=== PATIENT | female | born 1965 | race American Indian/Alaskan Native ===

== ENCOUNTER 2016-12-13 09:03 | Emergency (ER) | payer MEDICARE, OTHER ==
[2016-12-13 09:09] VITALS: BMI 29.2
[2016-12-13 09:10] VITALS: TEMP 98.6
--- NOTE | 2016-12-13 09:52 | C.PDOC ---
History Of Present Illness 51 y/o female presents to the ED with complaints of left lower back pain since 1700 yesterday, at first intermittent but then became constant and worse this morning. Pain radiates to LLQ. Pt states back pain IS different from prior episodes of back pain. She denies history of kidney stones, nausea, vomiting, diarrhea, dysuria/hematuria, vaginal bleeding/discharge. Time Seen by Provider: 12/13/16 09:23 Chief Complaint (Nursing): Back Pain History Per: Patient History/Exam Limitations: no limitations Onset/Duration Of Symptoms: Hrs Current Symptoms Are (Timing): Worse Quality Of Discomfort: "Pain" Severity: Moderate Previous Symptoms: None Associated Symptoms: None Past Medical History Reviewed: Historical Data, Nursing Documentation, Vital Signs Vital Signs: Last Vital Signs Temp 98.6 F 12/13/16 09:08 Pulse 66 12/13/16 12:37 Resp 17 12/13/16 12:37 BP 118/82 12/13/16 12:37 Pulse Ox 98 12/13/16 12:37 - Medical History PMH: Bronchitis, CAD, CHF, COPD, HTN, Hyperlipidemia Surgical History: Cholecystectomy, Pacemaker Family History: States: No Known Family Hx - Social History Hx Tobacco Use: No Hx Alcohol Use: No Hx Substance Use: No - Immunization History Hx Tetanus Toxoid Vaccination: No Hx Influenza Vaccination: Yes Hx Pneumococcal Vaccination: No Review Of Systems Except As Marked, All Systems Reviewed And Found Negative. Constitutional: Negative for: Fever, Chills Cardiovascular: Negative for: Chest Pain, Palpitations Respiratory: Negative for: Cough, Shortness of Breath Gastrointestinal: Negative for: Nausea, Vomiting, Abdominal Pain, Diarrhea Genitourinary: Negative for: Dysuria, Hematuria, Vaginal Discharge, Vaginal Bleeding Musculoskeletal: Positive for: Back Pain (radiating to LLQ) Physical Exam - Physical Exam Appears: Well, Non-toxic, In Acute Distress (moderate) Skin: Normal Color, Warm, Dry, No Rash Oral Mucosa: Moist Neck: Supple Cardiovascular: Rhythm Regular Respiratory: Normal Breath Sounds, No Rales, No Rhonchi, No Wheezing Gastrointestinal/Abdominal: Bowel Sounds, Soft, Tenderness (mild LLQ TTP), No Guarding, No Rebound, Other ((-) McBurney's) Back: CVA Tenderness (left), Paraspinal Tenderness (left lumbar) Extremity: Normal ROM Extremity: Bilateral: Atraumatic Neurological/Psych: Oriented x3 ED Course And Treatment - Laboratory Results Result Diagrams: 12/13/16 10:13 12/13/16 10:13 O2 Sat by Pulse Oximetry: 100 (room air) Pulse Ox Interpretation: Normal - CT Scan/US CT abdomen Other Rad Studies (CT/US): Read By Radiologist, Radiology Report Reviewed CT/US Interpretation: PROCEDURE: CT Abdomen and Pelvis without Oral or IV contrast. HISTORY: LLQ PAIN, LEFT FLANK R/O KIDNEY STONE. COMPARISON: CT abdomen and pelvis with contrast performed 08/24/16. TECHNIQUE: Contiguous axial images of the abdomen and pelvis. No oral or IV contrast administered. Coronal and Sagittal reformats generated and reviewed. Radiation dose: Total exam DLP = 875.32 mGy-cm. This CT exam was performed using one or more of the following dose reduction techniques: Automated exposure control, adjustment of the mA and/or kV according to patient size, and/or use of iterative reconstruction technique. FINDINGS: There is limited evaluation of the solid organs without the administration of IV contrast. LOWER THORAX: Mild bibasilar atelectasis. No visible pleural effusion or pneumothorax. Partially imaged AICD wire. Small hiatal hernia/distal esophageal wall thickening. LIVER : Unremarkable unenhanced appearance. GALLBLADDER AND BILE DUCTS: Cholecystectomy. PANCREAS: 3 mm pancreatic calcification, nonspecific. Otherwise unremarkable unenhanced appearance. SPLEEN: Unremarkable unenhanced appearance. ADRENALS: Unremarkable unenhanced appearance. KIDNEYS AND URETERS : No hydronephrosis or obstructing renal calculus. BLADDER: Thick-walled urinary bladder may be exaggerated by under distension. Recommend correlation with urinalysis in order to exclude possibility of cystitis. REPRODUCTIVE: Uterus is present. APPENDIX: No secondary signs of acute appendicitis. BOWEL : The stomach is nondistended. Lack of oral contrast limits evaluation for bowel pathology. The bowel loops appear within normal limits of caliber without evidence of intestinal obstruction. [id number] constipation. PERITONEUM: No significant free fluid. No definite free air. LYMPH NODES: No bulky lymphadenopathy identified. VASCULATURE: Atherosclerotic calcifications of the aorta. No aortic aneurysm. BONES: No acute osseous abnormality is detected. OTHER FINDINGS: Tiny fat containing umbilical hernia. IMPRESSION: Thick-walled urinary bladder may be exaggerated by under distension. Recommend correlation with urinalysis in order to exclude possibility of cystitis. No hydronephrosis or obstructing calculus identified. Cholecystectomy. Additional findings as above. Progress Note: Plan: Blood work, UA, CT abdomen/pelvis ordered and reviewed. Patient given IV NS bolus, IV toradol. 12:30 - Patient reassessed, is resting comfortably, in no current pain. On exam, abdomen is soft and nontender. Blood work, UA (-), and CT scan (-) for hydro or renal stones. Suspect musculoskeltal pain - Rxs given for pain medication. Patient instructed to follow up with PMD/clinic in 1-2 days. She understands she should return to ED if symptoms worsen. Reevaluation Time: 10:40 Reassessment Condition: Unchanged (On reassessment, patient still c/o significant pain - IV morphine ordered.) Disposition Counseled Patient/Family Regarding: Studies Performed, Diagnosis, Need For Followup, Rx Given - Disposition Referrals: Thierno Kirby Jr., MD [Medical Doctor] - Disposition: HOME/ ROUTINE Disposition Time: 12:30 Condition: STABLE Additional Instructions: FOLLOW UP WITH YOUR DOCTOR IN 1-2 DAYS USE MEDICATIONS NEEDED RETURN TO ER IF SYMPTOMS WORSEN Prescriptions: Acetaminophen with Codeine [Tylenol with Codeine #3 Tablet] 1 each PO Q6 PRN # 12 tablet PRN Reason: pain Cyclobenzaprine [Cyclobenzaprine HCl] 10 mg PO BID PRN #15 tab PRN Reason: Muscle Spasm Naproxen [Naprosyn] 1 tab PO BID PRN #20 tab PRN Reason: Pain Instructions: Acute Low Back Pain (ED) Print Language: ALGERIAN - POA Present On Arrival: None - Clinical Impression Clinical Impression: Low back pain - Scribe Statement The provider has reviewed the documentation as recorded by the Guillermo Hernandez Provider Attestation: All medical record entries made by the Guillermo were at my direction and personally dictated by me. I have reviewed the chart and agree that the record accurately reflects my personal performance of the history, physical exam, medical decision making, and the department course for this patient. I have also personally directed, reviewed, and agree with the discharge instructions and disposition.
[2016-12-13 09:55] LABS: RBC URINE 5 /hpf (0-3); URINE BACTERIA RARE (<OCC); URINE BILIRUBIN NEGATIVE (NEGATIVE); URINE COLOR Yellow (YELLOW); URINE GLUCOSE (UA) 2+ mg/dL (Normal); URINE KETONE NEGATIVE (NEGATIVE); URINE LEUKOCYTE ESTERASE NEG Leu/uL (Negative); URINE PROTEIN NEGATIVE (NEGATIVE); URINE UROBILINOGEN NORMAL mg/dL (0.2-1.0); WBC URINE 3 /hpf (0-5)
[2016-12-13 09:56] LABS: URINE BLOOD TRACE (NEGATIVE)
[2016-12-13] MEDS ORDERED: Sodium Chloride 0.9% 1,000 ML ONE (10:13)
[2016-12-13] MEDS: Sodium Chloride 0.9% 1,000 ML IV ONE (10:15)
[2016-12-13 10:18] LABS: BASO # 0.1 K/uL (0.0-0.2); BASO % 0.8 % (0.0-2.0); EOS # 0.2 K/uL (0.0-0.7); EOS % 2.5 % (0.0-4.0); LYMPH # 3.3 K/uL (1.0-4.3); MEAN CELL VOLUME 82.8 fL (81.0-99.0); MEAN CORPUSCULAR HEMOGLOBIN 27.6 pg (27.0-31.0); MEAN CORPUSCULAR HGB CONC 33.4 g/dL (33.0-37.0); MEAN PLATELET VOLUME 10.8 fL (7.2-11.7); MONO # 0.5 K/uL (0.0-0.8); MONO % 6.8 % (0.0-10.0); RED CELL DISTRIBUTION WIDTH 14.3 % (11.5-14.5); WHITE BLOOD COUNT 7.8 K/uL (4.8-10.8)
[2016-12-13 10:28] LABS: CHLORIDE 104 mmol/L (98-107)
[2016-12-13 10:29] LABS: SODIUM 142 mmol/L (132-148)
[2016-12-13 10:31] LABS: ALB/GLOB RATIO 1.5 (1.0-2.1); ALKALINE PHOSPHATASE 62 U/L (38-126); ALT/SGPT 26 U/L (9-52); AST/SGOT 27 U/L (14-36); BILIRUBIN,TOTAL 0.9 mg/dL (0.2-1.3); BLOOD UREA NITROGEN 11 mg/dL (7-17); CARBON DIOXIDE 29 mmol/L (22-30); GFR AFRICAN-AMERICAN > 60; TOTAL PROTEIN 6.9 g/dL (6.3-8.3)
[2016-12-13 10:32] LABS: CALCIUM 8.8 mg/dl (8.6-10.4); GLUCOSE,RANDOM 185 mg/dL (65-105)
[2016-12-13] MEDS ORDERED: Morphine 4 MG/ML VIAL ONE (10:44)
--- NOTE | 2016-12-13 12:00 | CT ---
PROCEDURE: CT Abdomen and Pelvis without Oral or IV contrast. HISTORY: LLQ PAIN, LEFT FLANK R/O KIDNEY STONE COMPARISON: CT abdomen and pelvis with contrast performed 08/24/16 TECHNIQUE: Contiguous axial images of the abdomen and pelvis. No oral or IV contrast administered. Coronal and Sagittal reformats generated and reviewed. Radiation dose: Total exam DLP = 875.32 mGy-cm. This CT exam was performed using one or more of the following dose reduction techniques: Automated exposure control, adjustment of the mA and/or kV according to patient size, and/or use of iterative reconstruction technique. FINDINGS: There is limited evaluation of the solid organs without the administration of IV contrast. LOWER THORAX: Mild bibasilar atelectasis. No visible pleural effusion or pneumothorax. Partially imaged AICD wire. Small hiatal hernia/distal esophageal wall thickening. LIVER: Unremarkable unenhanced appearance. GALLBLADDER AND BILE DUCTS: Cholecystectomy. PANCREAS: 3 mm pancreatic calcification, nonspecific. Otherwise unremarkable unenhanced appearance. SPLEEN: Unremarkable unenhanced appearance. ADRENALS: Unremarkable unenhanced appearance. KIDNEYS AND URETERS: No hydronephrosis or obstructing renal calculus. BLADDER: Thick-walled urinary bladder may be exaggerated by under distension. Recommend correlation with urinalysis in order to exclude possibility of cystitis. REPRODUCTIVE: Uterus is present. APPENDIX: No secondary signs of acute appendicitis. BOWEL: The stomach is nondistended. Lack of oral contrast limits evaluation for bowel pathology. The bowel loops appear within normal limits of caliber without evidence of intestinal obstruction. Hlhi-hn-wpykmyyo constipation. PERITONEUM: No significant free fluid. No definite free air. LYMPH NODES: No bulky lymphadenopathy identified. VASCULATURE: Atherosclerotic calcifications of the aorta. No aortic aneurysm. BONES: No acute osseous abnormality is detected. OTHER FINDINGS: Tiny fat containing umbilical hernia. IMPRESSION: Thick-walled urinary bladder may be exaggerated by under distension. Recommend correlation with urinalysis in order to exclude possibility of cystitis. No hydronephrosis or obstructing calculus identified. Cholecystectomy. Additional findings as above.
[2016-12-13 12:38] VITALS: BP 118/82; PULSE 66; RESP 17
[2016-12-17 18:09] VITALS: O2SAT 100
== END 2016-12-13 12:44 | disposition home or self-care (01) ==
LOC: C.ER 09:03
DX: M54.5 Low back pain (principal); I10 Essential (primary) hypertension; E78.5 Hyperlipidemia, unspecified; I25.10 Atherosclerotic heart disease of native coronary artery without angina pectoris
CPT/HCPCS: 74176; 80053; 81001; 82948; 83690; 85025; 96361; 96374; 96375; 99285; J1885; J2270; J7040

== ENCOUNTER 2017-02-17 09:31 | Emergency (ER) | payer MEDICARE, OTHER ==
[2017-02-17 09:31] VITALS: BMI 29.2
--- NOTE | 2017-02-17 10:06 | C.PDOC ---
History Of Present Illness 51-YEAR-OLD FEMALE, PRESENTS TO THE EMERGENCY DEPARTMENT WITH COMPLAINTS OF COUGH, NASAL NOREEN X 4 DAYS. TM 100.7. +HO ASTHMA, SMOKING. NO SOB, CP. PS AVG BS NORMALLY 300S. EXAM MILD DIST NONTOXIC HEENT +CLEAR RHINORRHEA LUNGS POOR EFFORT. NO RETRACTIONS, NO WHEEZE. SPEAKING FULL SETNECES WO DIFF. REMAINDER NEG Time Seen by Provider: 02/17/17 09:42 History Per: Patient History/Exam Limitations: no limitations Past Medical History Reviewed: Historical Data, Nursing Documentation, Vital Signs Vital Signs: Last Vital Signs Temp 98.2 F 02/17/17 11:27 Pulse 78 02/17/17 11:27 Resp 16 02/17/17 11:27 BP 115/70 02/17/17 11:27 Pulse Ox 98 02/17/17 11:27 - Medical History PMH: Bronchitis, CAD, CHF, COPD, HTN, Hyperlipidemia Surgical History: Cholecystectomy, Pacemaker Family History: States: No Known Family Hx - Social History Hx Tobacco Use: No Hx Alcohol Use: No Hx Substance Use: No - Immunization History Hx Tetanus Toxoid Vaccination: No Hx Influenza Vaccination: Yes Hx Pneumococcal Vaccination: No Review Of Systems Except As Marked, All Systems Reviewed And Found Negative. Constitutional: Negative for: Fever ENT: Positive for: Nose Discharge Cardiovascular: Negative for: Chest Pain Respiratory: Positive for: Cough. Negative for: Shortness of Breath Gastrointestinal: Negative for: Vomiting Musculoskeletal: Negative for: Back Pain Neurological: Negative for: Weakness, Headache, Dizziness Physical Exam - Physical Exam Appears: Non-toxic, No Acute Distress Skin: Warm, Dry, No Rash Head: Atraumatic, Normacephalic Eye(s): bilateral: Normal Inspection, PERRL Nose: Other (CLEAR RHINORRHEA) Oral Mucosa: Moist Lips: Normal Appearing Neck: Normal ROM, Supple Chest: Symmetrical Cardiovascular: Rhythm Regular, No Murmur Respiratory: No Accessory Muscle Use, No Wheezing, Other (POOR EFFORT. NO RETRACTIONS, NO WHEEZE. SPEAKING FULL SETNECES WO DIFF. ) Extremity: Normal ROM Neurological/Psych: Oriented x3, Normal Speech ED Course And Treatment O2 Sat by Pulse Oximetry: 96 Pulse Ox Interpretation: Normal - Radiology CXR: Interpreted by Me CXR Interpretation: Yes: No Acute Disease Disposition Counseled Patient/Family Regarding: Studies Performed, Diagnosis, Need For Followup, Rx Given - Disposition Referrals: YOUR,PMD [Other] Disposition: AGAINST MEDICAL ADVICE Disposition Time: 11:19 Condition: IMPROVED Prescriptions: Albuterol HFA [Ventolin HFA 90 mcg/actuation (8 g)] 1 puff IH Q4 #1 inhaler Azithromycin 250 mg PO DAILY #6 tab Brompheniram/Phenylephrine/Dm [Dimetapp Cold & Cough Liquid] 118 ml PO Q4 PRN # 1 solution PRN Reason: Nasal Congestion Instructions: Acute Bronchitis (ED) Forms: [employer] (Upper Sorbian) - Clinical Impression Clinical Impression: Bronchitis, Asthma exacerbation - Scribe Statement The provider has reviewed the documentation as recorded by the Scribe (Lucinda Broderick) All medical record entries made by the Scribe were at my direction and personally dictated by me. I have reviewed the chart and agree that the record accurately reflects my personal performance of the history, physical exam, medical decision making, and the department course for this patient. I have also personally directed, reviewed, and agree with the discharge instructions and disposition.
[2017-02-17] MEDS: Albuterol-Ipratrop 3 mg / 0.5 (3 ml) UD IH SCH ×3 (10:15→10:41)
[2017-02-17] MEDS ORDERED: Albuterol-Ipratrop 3 mg / 0.5 (3 ml) UD ONE (10:25)
--- NOTE | 2017-02-17 11:14 | RAD ---
HISTORY: COUGH COMPARISON: Chest radiographs dated 11/26/2015. TECHNIQUE: Chest PA and lateral FINDINGS: LUNGS: No active pulmonary disease. PLEURA: No significant pleural effusion identified. No pneumothorax apparent. CARDIOVASCULAR: Normal cardiomediastinal silhouette is encountered. A unipolar permanent cardiac pacemaker/ implanted defibrillator is again seen in position. OSSEOUS STRUCTURES: No significant abnormalities. VISUALIZED UPPER ABDOMEN: Normal. OTHER FINDINGS: None. IMPRESSION: No acute cardiopulmonary disease identified. Pacemaker/defibrillator again identified in position. No significant interval change 11/26/2015.
[2017-02-17 11:28] VITALS: BP 115/70; PULSE 78; RESP 16; TEMP 98.2
[2017-02-17 12:32] VITALS: O2SAT 96
== END 2017-02-17 11:27 | disposition left against medical advice (07) ==
LOC: C.ER 09:31
DX: J45.901 Unspecified asthma with (acute) exacerbation (principal); F17.210 Nicotine dependence, cigarettes, uncomplicated

== ENCOUNTER 2017-07-24 11:53 | Emergency (ER) | payer MEDICARE, OTHER ==
[2017-07-24 11:53] VITALS: BMI 29.2
[2017-07-24 13:18] VITALS: RESP 18; O2SAT 96
--- NOTE | 2017-07-24 13:48 | C.PDOC ---
History Of Present Illness 52 y/o F c PMHx HTN, COPD, CHF, DM p/w throat tightness x 12 hours. Patient states she was woken up in a coughing fit, feeling like her throat was tight and her chest was tight. She states she was unable to fall asleep since then but that the symptoms are gone and she has some residual body aches after all the coughing. She denies fever, chills, chest pain, drooling, voice change, rash , allergen ingestion night prior, current dyspnea. Time Seen by Provider: 07/24/17 13:16 Chief Complaint (Nursing): Shortness Of Breath Past Medical History Vital Signs: Last Vital Signs Temp 98.4 F 07/24/17 12:19 Pulse 83 07/24/17 12:19 Resp 18 07/24/17 13:15 BP 125/79 07/24/17 12:19 Pulse Ox 96 07/24/17 13:50 - Medical History PMH: Bronchitis, CAD, CHF, COPD, HTN, Hyperlipidemia Denies: Chronic Kidney Disease Surgical History: Cholecystectomy, Pacemaker Family History: States: Unknown Family Hx - Social History Hx Tobacco Use: No Hx Alcohol Use: No Hx Substance Use: No - Immunization History Hx Tetanus Toxoid Vaccination: No Hx Influenza Vaccination: Yes Hx Pneumococcal Vaccination: No Review Of Systems Except As Marked, All Systems Reviewed And Found Negative. Constitutional: Negative for: Fever Gastrointestinal: Negative for: Abdominal Pain Physical Exam - Physical Exam Additional Physical Exam Comments: Gen: NAD Head: NC Eyes: PERRL ENT: Airway patent, no erythema or swelling Neck: No stridor Chest: No tenderness CV: Regular rate Lungs: CTA b/l. No wheezing or crackles. Skin: No rash. Neuro: Alert, no focal deficit ED Course And Treatment O2 Sat by Pulse Oximetry: 96 Medical Decision Making Medical Decision Making: Patient with no active symptoms, no findings on physical examination, and normal vital signs. Will discharge home, instructed to return to ED for any worsening symptoms. Disposition - Disposition Referrals: Thierno Kirby Jr., MD [Medical Doctor] - Disposition: HOME/ ROUTINE Disposition Time: 13:45 Condition: STABLE Additional Instructions: The airway in your throat appears to be well opened without any signs of closing. You are being discharged home, but please return to the Emergency Department immediately for any worsening swelling, difficulty breathing, or drooling (unable to swallow). Forms: [employer] (Sol[place] Islander) - Clinical Impression Clinical Impression: Throat tightness
[2017-07-24] MEDS ORDERED: Acetaminophen-Codeine 300/30 mg Tab PO STA (13:54)
[2017-07-24] MEDS ORDERED: Acetaminophen-Codeine 300/30 mg Tab PO ONE (13:56)
[2017-07-24 13:58] VITALS: BP 124/79; PULSE 81; TEMP 98.6
--- NOTE | 2017-07-27 12:25 | CARD ---
APPROVED REPORT EKG Measurement Heart [id number] <Conclusion> Normal sinus rhythm Normal ECG
== END 2017-07-24 13:58 | disposition home or self-care (01) ==
LOC: C.ER 11:53
DX: R09.89 Other specified symptoms and signs involving the circulatory and respiratory systems (principal)

== ENCOUNTER 2018-02-12 09:49 | Observation (INO) | payer MEDICARE, OTHER ==
[2018-02-12 09:49] VITALS: BMI 29.2
--- NOTE | 2018-02-12 10:39 | C.PDOC ---
History Of Present Illness 52 y/o female presents to the ED with complaints of SOB, weakness, and left- sided chest pain that started today around 0400am. Patient has PMHx of Asthma, COPD, CHF, and is s/p pacemaker defibrillator placement. Otherwise she denies any arm pain, paresthesias, extremity weakness, dizziness, changes in speech, visual changes, vomiting, abdominal pain, or diarrhea. Time Seen by Provider: 02/12/18 10:09 Chief Complaint (Nursing): Shortness Of Breath History Per: Patient History/Exam Limitations: no limitations Onset/Duration Of Symptoms: Hrs Current Symptoms Are (Timing): Still Present Past Medical History Reviewed: Historical Data, Nursing Documentation, Vital Signs Vital Signs: Last Vital Signs Temp 98.2 F 02/12/18 15:40 Pulse 76 02/12/18 16:56 Resp 18 02/12/18 15:40 BP 106/69 02/12/18 15:40 Pulse Ox 100 02/12/18 17:17 - Medical History PMH: Bronchitis, CAD, CHF, COPD, HTN, Hyperlipidemia Denies: Chronic Kidney Disease Surgical History: Cholecystectomy, Pacemaker Family History: States: Unknown Family Hx - Social History Hx Tobacco Use: No Hx Alcohol Use: No Hx Substance Use: No - Immunization History Hx Tetanus Toxoid Vaccination: No Hx Influenza Vaccination: Yes Hx Pneumococcal Vaccination: No Review Of Systems Except As Marked, All Systems Reviewed And Found Negative. Constitutional: Positive for: Weakness (generalized). Negative for: Fever, Chills Eyes: Negative for: Vision Change Cardiovascular: Positive for: Chest Pain Respiratory: Positive for: Shortness of Breath Gastrointestinal: Negative for: Vomiting, Abdominal Pain, Diarrhea Musculoskeletal: Negative for: Arm Pain Neurological: Negative for: Weakness, Numbness, Change in Speech, Headache, Dizziness, Other (paresthesia) Physical Exam - Physical Exam Appears: Non-toxic, No Acute Distress Skin: Normal Color, Warm, Dry Head: Atraumatic, Normacephalic Eye(s): bilateral: Normal Inspection, PERRL, EOMI Oral Mucosa: Moist Neck: Normal ROM, Supple Chest: Symmetrical, Tenderness (to the left chest wall) Cardiovascular: Rhythm Regular, No Murmur Respiratory: Normal Breath Sounds, No Rales, No Rhonchi, No Wheezing Gastrointestinal/Abdominal: Soft, No Tenderness, No Distention Back: Normal Inspection, No CVA Tenderness Extremity: Bilateral: Atraumatic, No Pedal Edema, Normal Color And Temperature, Normal ROM Pulses: Left Radial: Normal, Right Radial: Normal Neurological/Psych: Oriented x3, Normal Speech ED Course And Treatment - Laboratory Results Result Diagrams: 02/12/18 10:46 02/12/18 10:46 Lab Interpretation: No Acute Changes ECG: Interpreted By Me ECG Rhythm: Sinus Rhythm ECG Interpretation: Normal Rate From EC O2 Sat by Pulse Oximetry: 100 (RA) Pulse Ox Interpretation: Normal - Radiology CXR: Interpreted by Me - Other Rad CXR X-Ray: Viewed By Me, Read By Radiologist Interpretation: FINDINGS: LUNGS: The lungs are well inflated and clear. PLEURA: No pneumothorax or pleural fluid seen. CARDIOVASCULAR: The heart is normal in size. There is stable position of left-sided AICD. OSSEOUS STRUCTURES: No significant abnormalities. VISUALIZED UPPER ABDOMEN: Normal. OTHER FINDINGS: None. IMPRESSION: No acute findings. Progress Note: Treated with tylenol 650 mg PO. On re-evaluation continues to complain of chest pain. Treated with percocet x 1 Reassessment Condition: Improved - Physician Consult Information Physician Contacted: Thierno Kirby Jr. Outcome Of Conversation: admit Medical Decision Making Medical Decision Making: Impression: SOB, Chest Pain, r/o ACS Initial Plan: --EKG --Blood work w/ cardiac enzymes --Urine preg --Urinalysis --Chest X-Ray --Tylenol 650 mg PO Labs reviewed, negative troponin. Case discu Disposition Discussed With DrCorrie: Thierno Kirby Jr. Doctor Will See Patient In The: Hospital - Disposition Disposition: HOSPITALIZED Disposition Time: 16:00 Condition: STABLE - POA Present On Arrival: None - Clinical Impression Clinical Impression: Chest pain - PA / SURFACE WATER MANAGER / Resident Statement MD/DO has reviewed & agrees with the documentation as recorded. - Scribe Statement The provider has reviewed the documentation as recorded by the Scribe (Sera Donaldson) All medical record entries made by the Scribe were at my direction and personally dictated by me. I have reviewed the chart and agree that the record accurately reflects my personal performance of the history, physical exam, medical decision making, and the department course for this patient. I have also personally directed, reviewed, and agree with the discharge instructions and disposition. Decision To Admit - Pt Status Changed To: Hospital Disposition Of: Observation - InPatient: Physician Admission Certification: I certify that this patient requires 2 or more midnights of care for the following reason:: Chest Pain - . Bed Request Type: Telemetry Admitting Physician: Thierno Kirby Jr. Patient Diagnosis: Chest pain
[2018-02-12 10:54] LABS: BASO % 1.5 % (0.0-2.0); EOS # 0.1 K/uL (0.0-0.7); EOS % 1.4 % (0.0-4.0); HEMOGLOBIN 13.6 g/dL (11.0-16.0); LYMPH % 38.2 % (20.0-40.0); MEAN CELL VOLUME 81.5 fL (81.0-99.0); MEAN CORPUSCULAR HEMOGLOBIN 27.7 pg (27.0-31.0); MEAN CORPUSCULAR HGB CONC 34.1 g/dL (33.0-37.0); MEAN PLATELET VOLUME 10.6 fL (7.2-11.7); MONO # 0.8 K/uL (0.0-0.8); MONO % 7.3 % (0.0-10.0); NEUT # 5.3 K/uL (1.8-7.0); NEUT % 51.6 % (50.0-75.0); RBC 4.89 Mil/uL (3.80-5.20); RED CELL DISTRIBUTION WIDTH 15.2 % (11.5-14.5); WHITE BLOOD COUNT 10.4 K/uL (4.8-10.8)
[2018-02-12 10:55] LABS: BASO # 0.2 K/uL (0.0-0.2)
--- NOTE | 2018-02-12 10:57 | RAD ---
Date of service: 02/12/2018 PROCEDURE: CHEST RADIOGRAPH, 1 VIEW HISTORY: Shortness of breath COMPARISON: 02/17/2017. FINDINGS: LUNGS: The lungs are well inflated and clear. PLEURA: No pneumothorax or pleural fluid seen. CARDIOVASCULAR: The heart is normal in size. There is stable position of left-sided AICD. OSSEOUS STRUCTURES: No significant abnormalities. VISUALIZED UPPER ABDOMEN: Normal. OTHER FINDINGS: None. IMPRESSION: No acute findings.
[2018-02-12 11:07] LABS: ALB/GLOB RATIO 1.6 (1.0-2.1); ALBUMIN 4.6 g/dL (3.5-5.0); CALCIUM 9.5 mg/dl (8.6-10.4)
[2018-02-12 11:19] LABS: B-TYPE NATRIURETIC PEPTIDE 24.9 pg/mL (0-900); CK-MB 0.59 ng/mL (0.0-3.38); TROPONIN I 0.016 ng/mL (0.00-0.120)
[2018-02-12 11:51] LABS: HCG,QUALITATIVE URINE NEGATIVE (NEGATIVE)
[2018-02-12 12:02] LABS: SQUAMOUS EPITHIAL 3 /hpf (0-5); URINE BACTERIA FEW (<OCC); URINE BILIRUBIN NEGATIVE (NEGATIVE); URINE BLOOD 1+ (NEGATIVE); URINE CLARITY Clear (Clear); URINE COLOR Yellow (YELLOW); URINE GLUCOSE (UA) NORMAL (Normal); URINE LEUKOCYTE ESTERASE NEG Leu/uL (Negative); URINE PROTEIN 1+ mg/dL (NEGATIVE)
[2018-02-12] MEDS ORDERED: Potassium Chloride 20 mEq/15 ml LIQ UD PO STA (13:12)
[2018-02-12] MEDS ORDERED: Potassium Chloride 20 mEq/15 ml LIQ UD ONE (13:30)
[2018-02-12] MEDS ORDERED: Albuterol HFA 90 mcg/actuation (8 g) IH SCH (16:00)
[2018-02-12] MEDS ORDERED: Albuterol HFA 90 mcg/actuation (8 g) IH PRN (16:15)
[2018-02-12 17:47] LABS: CK-MB 0.39 ng/mL (0.0-3.38); TROPONIN I 0.014 ng/mL (0.00-0.120)
--- NOTE | 2018-02-12 17:53 | CP.PCM.HP ---
History of Present Illness - History of Present Illness History of Present Illness: cc: chest pain Patient is a 52 yo female with PMH of DM, asthma, COPD, CHF, pacemaker and HLD, ITP who reports being woken up at 4:00 this morning with palpitations, shortness of breath, diffuse muscle aches and later developed chest pain. Patient reports the chest pain is achy in nature, left sided, 7/10, constant and lasted 20 minutes before resolving spontaneously. Patient reports the pain radiated down her left arm associated with numbness and tingling of the left hand. Patient reports taking her morning medications but did not take any other medications such as aspirin. Patient reports having similar symptoms 1 week ago which resolved spontaneously. Patient denies any different activities or diet within the past few weeks. Patient denies headache, blurry vision, nausea, vomiting, constipation, diarrhea , fever, or recent illness. Patient reports diffuse body aches, shortness of breath even with 95-99% O2 saturation at time of admission, improving dizziness , and resolved palpitations and chest pain. Patient was given Aspirin, Tylenol and Toradol in the ED and had a normal EKG, CXR and troponin. Patient was given 40 meq Potassium chloride secondary to hypokalemia. PMH: DM, asthma, COPD, CHF, pacemaker, HLD PSxH: Cholecystectomy, Pacemaker 2009. Family history: - Father DM, CAD, HTN - Mother healthy 2 sisters both with HTN, DM Social: lives with son, daughter and grandson, quit smoking 1 month ago after smoking for 20 years at 1/2 [facility], denies EtOH or drugs Allergies: Jose valdez PMD: Dr. Kirby Traffic Supervisor: Dr. Bajwa Code: full Present on Admission - Present on Admission Any Indicators Present on Admission: No Review of Systems - Constitutional Constitutional: Weakness. absent: Anorexia, Chills, Headache, Night Sweats, Weight Loss - EENT Eyes: absent: Blurred Vision, Diplopia, Irritation, Sees Flashes Ears: absent: Decreased Hearing, Tinnitus Nose/Mouth/Throat: absent: Nasal Congestion, Nasal Discharge, Dry Mouth, Dysphagia - Cardiovascular Cardiovascular: Chest Pain, Diaphoresis, Dyspnea, Palpitations. absent: Chest Pain at Rest, Chest Pain with Activity, Edema, Irregular Heart Rhythm - Respiratory Respiratory: Dyspnea. absent: Cough, Hemoptysis, Dyspnea on Exertion, Wheezing , Snoring, Stridor, Pain on Inspiration, Chest Congestion - Gastrointestinal Gastrointestinal: absent: Change in Bowel Habits, Constipation, Cramping, Diarrhea, Dysphagia, Hematemesis, Hematochezia, Odynophagia - Genitourinary Genitourinary: absent: Change in Urinary Stream, Difficulty Urinating, Urinary Frequency, Urinary Hesitance, Urinary Urgency - Musculoskeletal Musculoskeletal: Numbness, Tingling. absent: Arthralgias, Muscle Weakness - Integumentary Integumentary: absent: Change in Nails, Photosensitivity, Rash - Neurological Neurological: Disequilibrium, Dizziness, Numbness, Headaches, Tingling - Psychiatric Psychiatric: absent: Behavioral Changes, Change in Appetite, Hallucinations - Endocrine Endocrine: absent: Cold Intolorance, Heat Intolorance Past Patient History - Infectious Disease Hx of Infectious Diseases: None - Past Medical History & Family History Past Medical History?: Yes - Past Social History Smoking Status: Light Smoker < 10 Cigarettes Daily Alcohol: None Drugs: Denies - CARDIAC Hx Congestive Heart Failure: Yes Hx Hypertension: Yes Hx Pacemaker: Yes - PULMONARY Hx Bronchitis: Yes Hx Chronic Obstructive Pulmonary Disease (COPD): Yes - NEUROLOGICAL Hx Neurological Disorder: No - HEENT Hx HEENT Problems: No - RENAL Hx Chronic Kidney Disease: No - ENDOCRINE/METABOLIC Hx Endocrine Disorders: Yes Hx Diabetes Mellitus Type 1: Yes Hx Diabetes Mellitus Type 2: Yes - HEMATOLOGICAL/ONCOLOGICAL Hx Blood Disorders: No - INTEGUMENTARY Hx Dermatological Problems: No - MUSCULOSKELETAL/RHEUMATOLOGICAL Hx Musculoskeletal Disorders: No Hx Falls: No - GASTROINTESTINAL Hx Gastrointestinal Disorders: No - GENITOURINARY/GYNECOLOGICAL Hx Genitourinary Disorders: No - PSYCHIATRIC Hx Substance Use: No - SURGICAL HISTORY Hx Cholecystectomy: Yes - ANESTHESIA Hx Anesthesia: Yes Hx Anesthesia Reactions: No Hx Malignant Hyperthermia: No Meds Allergies/Adverse Reactions: Allergies Allergy/AdvReac Type Severity Reaction Status Date / Time diphenhydramine Allergy Verified 02/12/18 09:52 [From Benadryl] Physical Exam - Head Exam Head Exam: ATRAUMATIC, NORMOCEPHALIC - Eye Exam Eye Exam: EOMI, Normal appearance - ENT Exam ENT Exam: Mucous Membranes Moist, Normal Exam - Respiratory Exam Respiratory Exam: Clear to Auscultation Bilateral, NORMAL BREATHING PATTERN. absent: Rales, Rhonchi, Wheezes - Cardiovascular Exam Cardiovascular Exam: REGULAR RHYTHM, +S1, +S2 Additional comments: mild left chest wall tenderness - GI/Abdominal Exam GI & Abdominal Exam: Normal Bowel Sounds, Soft. absent: Tenderness - Extremities Exam Extremities exam: Positive for: normal capillary refill, pedal pulses present. Negative for: pedal edema - Neurological Exam Neurological exam: Alert, Oriented x3, Reflexes Normal - Psychiatric Exam Psychiatric exam: Normal Affect, Normal Mood - Skin Skin Exam: Dry, Intact, Normal Color, Warm Results - Vital Signs Recent Vital Signs: Last Vital Signs Temp 98.2 F 02/12/18 15:40 Pulse 76 02/12/18 16:56 Resp 18 02/12/18 15:40 BP 99/67 L 02/12/18 17:48 Pulse Ox 100 02/12/18 17:40 - Labs Result Diagrams: 02/12/18 10:46 02/12/18 10:46 Labs: Laboratory Results - last 24 hr 02/12/18 02/12/18 02/12/18 10:46 10:46 11:33 WBC 10.4 RBC 4.89 Hgb 13.6 Hct 39.8 MCV 81.5 MCH 27.7 MCHC 34.1 RDW 15.2 H Plt Count 62 L MPV 10.6 Neut % (Auto) 51.6 Lymph % (Auto) 38.2 [place] % (Auto) 7.3 Eos % (Auto) 1.4 Baso % (Auto) 1.5 Neut # (Auto) 5.3 Lymph # (Auto) 4.0 [place] # (Auto) 0.8 Eos # (Auto) 0.1 Baso # (Auto) 0.2 Differential Comment Sodium 139 Potassium 3.1 L Chloride 97 L Carbon Dioxide 28 Anion Gap 17 BUN 14 Creatinine 1.2 Est GFR ( Amer) 57 Est GFR (Non-Af Amer) 47 POC Glucose (mg/dL) Random Glucose 298 H Calcium 9.5 Total Bilirubin 1.0 AST 31 ALT 37 Alkaline Phosphatase 66 Total Creatine Kinase CK-MB (Mass) 0.59 Troponin I 0.0160 NT-Pro-B Natriuret Pep 24.9 Total Protein 7.4 Albumin 4.6 Globulin 2.8 Albumin/Globulin Ratio 1.6 Lipase 243 Urine Color Yellow Urine Clarity Clear Urine pH 6.0 Ur Specific [place] 1.011 Urine Protein 1+ H Urine Glucose (UA) Normal Urine Ketones Negative Urine Blood 1+ H Urine Nitrate Negative Urine Bilirubin Negative Urine Urobilinogen 4.0 H Ur Leukocyte Esterase Neg Urine WBC (Auto) 4 Urine RBC (Auto) 9 H Ur Squamous Epith Cells 3 Urine Bacteria Few H Urine HCG, Qual Negative 02/12/18 02/12/18 16:50 17:07 WBC RBC Hgb Hct MCV MCH MCHC RDW Plt Count MPV Neut % (Auto) Lymph % (Auto) [place] % (Auto) Eos % (Auto) Baso % (Auto) Neut # (Auto) Lymph # (Auto) [place] # (Auto) Eos # (Auto) Baso # (Auto) Differential Comment Sodium Potassium Chloride Carbon Dioxide Anion Gap BUN Creatinine Est GFR ( Amer) Est GFR (Non-Af Amer) POC Glucose (mg/dL) 211 H Random Glucose Calcium Total Bilirubin AST ALT Alkaline Phosphatase Total Creatine Kinase 195 H CK-MB (Mass) 0.39 Troponin I 0.0140 NT-Pro-B Natriuret Pep Total Protein Albumin Globulin Albumin/Globulin Ratio Lipase Urine Color Urine Clarity Urine pH Ur Specific [place] Urine Protein Urine Glucose (UA) Urine Ketones Urine Blood Urine Nitrate Urine Bilirubin Urine Urobilinogen Ur Leukocyte Esterase Urine WBC (Auto) Urine RBC (Auto) Ur Squamous Epith Cells Urine Bacteria Urine HCG, Qual Assessment & Plan - Assessment and Plan (Free Text) Assessment: 52yoF with PMH CHF with pacemaker, DM, asthma/COPD, ITP, HLD admitted for CP, palpitations, SOB r/o ACS Plan: 1) Chest pain r/o ACS - CXR 02/12: no acute findings - ANISHA x2 negative, pending third at 2100 - EKG normal: no ACS, pending third at 2100 - UA 1+ protein, 1+ blood, 4.0 urobili, 9 RBC, few bacteria - Tylenol 650mg po q6h prn for pain - f/u AM labs - this is a regular patient of Dr. Mejia. does not need lipid panel, Hgb A1c, ECHO done this visit since recently completed as outpatient 2) Hypokalemia - K 3.1 on admission. Given 40 meq KCl - Monitor K with AM labs, replete as needed - goal K is 3.4 3) DM: - Continue home medications and doses - Januvia 100mg po daily - Metformin 500mg po bid - Novolog 20u sc qAM - Glipizide 10mg po bidAC - ISS - hypoglycemia protocol - Accucheck ACHS HLD: - Continue home medications and doses - Atorvastatin -> Rosuvastatin 40mg po HS Asthma/COPD: - Continue home medications and doses - Duonebs q6 prn - Ventolin 1 puff IH q4h prn CHF: - CXR negative - Follow up with EKG tomorrow - Lasix 20mg po daily PPx - DVT: CI due to Hx ITP - GI: not indicated at this time d/w Dr. Mirta Palma PGY-1 - Date & Time Date: 02/12/18 Time: 15:30
[2018-02-12] MEDS ORDERED: Albuterol-Ipratrop 3 mg / 0.5 (3 ml) UD INH PRN (18:11)
[2018-02-12] MEDS ORDERED: Glucagon Recombinant 1 mg Inj IM PRN (18:11)
[2018-02-12] MEDS ORDERED: Dextrose 50% SYRINGE Inj (50 ml) IV PRN (18:11)
[2018-02-13 00:31] VITALS: RESP 20
[2018-02-13 08:07] VITALS: O2SAT 98
[2018-02-13 08:16] LABS: BASO # 0.1 K/uL (0.0-0.2); BASO % 0.9 % (0.0-2.0); EOS # 0.2 K/uL (0.0-0.7); EOS % 1.9 % (0.0-4.0); HEMOGLOBIN 13.6 g/dL (11.0-16.0); LYMPH # 3.3 K/uL (1.0-4.3); LYMPH % 36.7 % (20.0-40.0); MEAN CELL VOLUME 81.1 fL (81.0-99.0); MEAN CORPUSCULAR HEMOGLOBIN 27.7 pg (27.0-31.0); MEAN CORPUSCULAR HGB CONC 34.2 g/dL (33.0-37.0); MEAN PLATELET VOLUME 11.1 fL (7.2-11.7); MONO # 0.7 K/uL (0.0-0.8); MONO % 7.5 % (0.0-10.0); NEUT # 4.8 K/uL (1.8-7.0); NRBC % 0.1 % (0.0-2.0); RBC 4.91 Mil/uL (3.80-5.20); RED CELL DISTRIBUTION WIDTH 15.1 % (11.5-14.5); WHITE BLOOD COUNT 9.1 K/uL (4.8-10.8)
[2018-02-13 08:45] LABS: CK-MB 0.42 ng/mL (0.0-3.38); TROPONIN I 0.016 ng/mL (0.00-0.120)
[2018-02-13 08:59] LABS: ALB/GLOB RATIO 1.4 (1.0-2.1); ALBUMIN 4.2 g/dL (3.5-5.0); CALCIUM 9.4 mg/dl (8.6-10.4)
[2018-02-13] MEDS ORDERED: (Novolog) Insulin Aspart, Recombinant 100 u/ml 10 ml vial SC SCH (10:00)
[2018-02-13] MEDS ORDERED: Enoxaparin 40 mg Syringe SC SCH (10:00)
--- NOTE | 2018-02-13 10:28 | CP.PCM.PN ---
Objective - Vital Signs/Intake and Output Vital Signs (last 24 hours): Temp Pulse Resp BP Pulse Ox 98.1 F 67 20 124/75 98 02/13/18 07:00 02/13/18 07:00 02/13/18 07:00 02/13/18 09:41 02/13/18 07:00 Intake and Output: 02/13/18 02/13/18 06:59 18:59 Intake Total 600 Balance 600 - Medications Medications: Current Medications Acetaminophen (Tylenol 325mg Tab) 650 mg PO Q6 PRN PRN Reason: Pain, moderate (4-7) Last Admin: 02/12/18 20:01 Dose: 650 mg Albuterol (Ventolin Hfa 90 Mcg/Actuation (8 G)) 1 puff IH RQ4 PRN PRN Reason: Shortness of Breath Albuterol/Ipratropium (Duoneb 3 Mg/0.5 Mg (3 Ml) Ud) 3 ml INH RQ6 PRN PRN Reason: Shortness of Breath Carvedilol (Coreg) 25 mg PO BID [facility] Last Admin: 02/13/18 09:41 Dose: 25 mg Dextrose (Dextrose 50% Inj) 0 ml IV STAT PRN; Protocol PRN Reason: Hypoglycemia Protocol Dextrose (Glutose 15) 0 gm PO ONCE PRN; Protocol PRN Reason: Hypoglycemia Protocol Enalapril Maleate (Vasotec) 20 mg PO DAILY [facility] Last Admin: 02/13/18 09:41 Dose: 20 mg Enoxaparin Sodium (Lovenox) 40 mg SC DAILY [facility] Last Admin: 02/13/18 09:43 Dose: 40 mg Furosemide (Lasix) 20 mg PO DAILY [facility] Last Admin: 02/13/18 09:40 Dose: 20 mg Glipizide (Glucotrol) 10 mg PO BIDAC [facility] Last Admin: 02/13/18 07:52 Dose: 10 mg Glucagon (Glucagen Diagnostic Kit) 0 mg IM STAT PRN; Protocol PRN Reason: Hypoglycemia Protocol Dextrose (Dextrose 5% In Water 1000 Ml) 1,000 mls @ 0 mls/hr IV .Q0M PRN; Protocol; Per Protocol PRN Reason: Hypoglycemia Protocol Insulin Aspart (Novolog) 20 unit SC QAM [facility] Last Admin: 02/13/18 09:44 Dose: 20 u [facility]formin [facility] ([facility]ophage) [facility] Last Admin: 02/13/18 07:52 Dose: 500 mg Rosuvastatin Calcium (Crestor) 40 mg PO HS [facility] Last Admin: 02/12/18 21:12 Dose: 40 mg Sitagliptin Phosphate (Januvia) 100 mg PO DAILY [facility] Last Admin: 02/13/18 09:41 Dose: 100 mg - Labs Labs: 02/13/18 08:03 02/13/18 08:03
[2018-02-13 16:10] VITALS: TEMP 98.2
[2018-02-13 16:27] VITALS: PULSE 77
--- NOTE | 2018-02-13 17:08 | CP.PCM.DIS ---
Provider - Provider Date of Admission: 02/12/18 13:02 Attending physician: Thierno Kirby Jr, MD Primary care physician: Dr. Kirby Time Spent in preparation of Discharge (in minutes): 45 Diagnosis - Discharge Diagnosis (1) Chest pain Status: Acute Comment: Trops neg X3, EKG no st elevations, CXr neg Hospital Course - Lab Results Lab Results: Most Recent Lab Values WBC 9.1 K/uL (4.8-10.8) 02/13/18 08:03 RBC 4.91 Mil/uL (3.80-5.20) 02/13/18 08:03 Hgb 13.6 g/dL (11.0-16.0) 02/13/18 08:03 Hct 39.8 % (34.0-47.0) 02/13/18 08:03 MCV 81.1 fL (81.0-99.0) 02/13/18 08:03 MCH 27.7 pg (27.0-31.0) 02/13/18 08:03 MCHC 34.2 g/dL (33.0-37.0) 02/13/18 08:03 RDW 15.1 % (11.5-14.5) H 02/13/18 08:03 Plt Count 57 K/uL (130-400) L 02/13/18 08:03 MPV 11.1 fL (7.2-11.7) 02/13/18 08:03 Neut % (Auto) 53.0 % (50.0-75.0) 02/13/18 08:03 Lymph % (Auto) 36.7 % (20.0-40.0) 02/13/18 08:03 [place] % (Auto) 7.5 % (0.0-10.0) 02/13/18 08:03 Eos % (Auto) 1.9 % (0.0-4.0) 02/13/18 08:03 Baso % (Auto) 0.9 % (0.0-2.0) 02/13/18 08:03 Neut # (Auto) 4.8 K/uL (1.8-7.0) 02/13/18 08:03 Lymph # (Auto) 3.3 K/uL (1.0-4.3) 02/13/18 08:03 [place] # (Auto) 0.7 K/uL (0.0-0.8) 02/13/18 08:03 Eos # (Auto) 0.2 K/uL (0.0-0.7) 02/13/18 08:03 Baso # (Auto) 0.1 K/uL (0.0-0.2) 02/13/18 08:03 Differential Comment 02/12/18 10:46 Sodium 142 mmol/L (132-148) 02/13/18 08:03 Potassium 4.4 mmol/L (3.6-5.2) 02/13/18 08:03 Chloride 100 mmol/L (98-107) 02/13/18 08:03 Carbon Dioxide 31 mmol/L (22-30) H 02/13/18 08:03 Anion Gap 15 (10-20) 02/13/18 08:03 BUN 19 mg/dL (7-17) H 02/13/18 08:03 Creatinine 1.2 mg/dL (0.7-1.2) 02/13/18 08:03 Est GFR ( Amer) 57 02/13/18 08:03 Est GFR (Non-Af Amer) 47 02/13/18 08:03 POC Glucose (mg/dL) 247 mg/dL (65-110) H 02/13/18 11:25 Random Glucose 222 mg/dL (65-105) H 02/13/18 08:03 Calcium 9.4 mg/dl (8.6-10.4) 02/13/18 08:03 Phosphorus 3.8 mg/dL (2.5-4.5) 02/13/18 08:03 Magnesium 1.8 mg/dL (1.6-2.3) 02/13/18 08:03 Total Bilirubin 0.8 mg/dL (0.2-1.3) 02/13/18 08:03 AST 29 U/L (14-36) 02/13/18 08:03 ALT 32 U/L (9-52) 02/13/18 08:03 Alkaline Phosphatase 57 U/L (38-126) 02/13/18 08:03 Total Creatine Kinase 178 U/L (30-135) H 02/13/18 08:03 CK-MB (Mass) 0.42 ng/mL (0.0-3.38) 02/13/18 08:03 Troponin I 0.0160 ng/mL (0.00-0.120) 02/13/18 08:03 NT-Pro-B Natriuret Pep 24.9 pg/mL (0-900) 02/12/18 10:46 Total Protein 7.3 g/dL (6.3-8.3) 02/13/18 08:03 Albumin 4.2 g/dL (3.5-5.0) 02/13/18 08:03 Globulin 3.1 gm/dL (2.2-3.9) 02/13/18 08:03 Albumin/Globulin Ratio 1.4 (1.0-2.1) 02/13/18 08:03 Lipase 243 U/L (23-300) 02/12/18 10:46 Urine Color Yellow (YELLOW) 02/12/18 11:33 Urine Clarity Clear (Clear) 02/12/18 11:33 Urine pH 6.0 (5.0-8.0) 02/12/18 11:33 Ur Specific [place] 1.011 (1.003-1.030) 02/12/18 11:33 Urine Protein 1+ mg/dL (NEGATIVE) H 02/12/18 11:33 Urine Glucose (UA) Normal mg/dL (Normal) 02/12/18 11:33 Urine Ketones Negative mg/dL (NEGATIVE) 02/12/18 11:33 Urine Blood 1+ (NEGATIVE) H 02/12/18 11:33 Urine Nitrate Negative (NEGATIVE) 02/12/18 11:33 Urine Bilirubin Negative (NEGATIVE) 02/12/18 11:33 Urine Urobilinogen 4.0 mg/dL (0.2-1.0) H 02/12/18 11:33 Ur Leukocyte Esterase Neg Mehdi/uL (Negative) 02/12/18 11:33 Urine WBC (Auto) 4 /hpf (0-5) 02/12/18 11:33 Urine RBC (Auto) 9 /hpf (0-3) H 02/12/18 11:33 Ur Squamous Epith Cells 3 /hpf (0-5) 02/12/18 11:33 Urine Bacteria Few (<OCC) H 02/12/18 11:33 Urine HCG, Qual Negative (NEGATIVE) 02/12/18 11:33 - Hospital Course Hospital Course: Patient is a 52 yo F with PMH of DM, asthma, COPD, CHF, pacemaker and HLD, ITP who reports being woken up at 4:00 this morning with palpitations, shortness of breath, diffuse muscle aches and later developed chest pain. Patient reports the chest pain is achy in nature, left sided, 7/10, constant and lasted 20 minutes before resolving spontaneously. Patient reports the pain radiated down her left arm associated with numbness and tingling of the left hand. Patient reports taking her morning medications but did not take any other medications such as aspirin. Patient reports having similar symptoms 1 week ago which resolved spontaneously. Patient denies any different activities or diet within the past few weeks. Patient denies headache, blurry vision, nausea, vomiting, constipation, diarrhea , fever, or recent illness. Patient reports diffuse body aches, shortness of breath even with 95-99% o2 saturation at time of admission, improving dizziness , and resolved palpitations and chest pain. Patient was given Tylenol and Toradol in the ED and had a normal EKG, CXR and troponin. Patient was given 40 meq Potassium chloride secondary to hypokalemia. During admission, patient had normal repeat EKG along with negative troponin x3.Heart rate has been stable in the 70's. Repeat labwork revealed hypokalemia now resolved. Patient was not given Aspirin due to risk of bleeding with history of ITP. Patient reports the shortness of breath, chest pain, numbness, tingling, and dizziness have all resolved and is resting comfortably. Above is only a summary, please see full EMR for full details. Below is the discharge instructions provided to the patient upon discharge: Patient stable for discharge home per Dr. Kirby. Patient should follow up with Dr. Kirby in 2-3 weeks following discharge. Please call his office to make an appointment. Patient should continue all of her home medications. If her symptoms arise or worsen, she should return to the emergency room. Take Care. Discharge Exam - Head Exam Head Exam: ATRAUMATIC, NORMOCEPHALIC - Eye Exam Eye Exam: EOMI, Normal appearance, PERRL Pupil Exam: NORMAL ACCOMODATION - Respiratory Exam Respiratory Exam: NORMAL BREATHING PATTERN, UNREMARKABLE. absent: Rhonchi, Wheezes, Respiratory Distress - Cardiovascular Exam Cardiovascular Exam: +S1, +S2. absent: Gallop, Rubs - GI/Abdominal Exam GI & Abdominal Exam: Normal Bowel Sounds, Unremarkable. absent: Soft, Tenderness - Extremities Exam Extremities exam: full ROM Additional comments: No calf tenderness, no pedal edema, Normal ROM. - Neurological Exam Neurological exam: Alert, Oriented x3 - Psychiatric Exam Psychiatric exam: Normal Affect, Normal Mood - Skin Skin Exam: Dry, Intact, Normal Color, Warm Discharge Plan - Follow Up Plan Condition: STABLE Disposition: HOME/ ROUTINE Instructions: Heart Failure, Adult (DC), Shortness of Breath (Dyspnea) (DC), Chest Pain (DC), Generalized Weakness (DC) Additional Instructions: Patient stable for discharge home per Dr. Kirby. Patient should follow up with Dr. Kirby in 2-3 weeks following discharge. Please call his office to make an appointment. Patient should continue all of her home medications. If her symptoms arise or worsen, she should return to the emergency room. Take Care. Referrals: Thierno Kirby Jr., MD [Medical Doctor] - Clinical Quality Measures - CQM - Heart Failure Ejection Fraction: 40 % or Greater Left Ventricular Function to be assessed after discharge: Yes CHINO Inhibitor Prescribed: Yes Beta-Chiquita Prescribed: Carvedilol Angiotensin II Receptor Chiquita Prescribed: No Contraindication/Reason for not providing: ACEi prescribed AnticoagulationTherapy for Atrial Fibrillation/Atrialflutter: No Contraindication/Reason for not providing: Does not have afib Aldosterone Antagonist Prescribed: No Contraindication/Reason for not providing: Not indicated Hydralazine Nitrate Prescribed: No Contraindication/Reason for not providing: Not indicated Implantable Cardioverter Defibrillator Therapy: No Contraindication/Reason for not providing: Not indicated Cardiac Resynchronization Therapy Prescribed: No Contraindication/Reason for not providing: Not indicated Will be discharged to: Home Follow Up Date (must be within 7 days from discharge): 02/19/18 Follow Up Time: 09:00
[2018-02-13 17:29] VITALS: BP 112/77
--- NOTE | 2018-02-13 20:10 | CARD ---
APPROVED REPORT Date of service: 02/12/2018 EKG Measurement Heart [id number] <Conclusion> Normal sinus rhythm Prolonged QT Abnormal ECG
--- NOTE | 2018-02-13 20:21 | CARD ---
APPROVED REPORT Date of service: 02/12/2018 EKG Measurement Heart [id number] <Conclusion> Normal sinus rhythm Normal ECG
== END 2018-02-13 18:36 | disposition home or self-care (01) ==
LOC: C.ER 09:49 → C.9E 13:02 → C.5S 14:37
PROVIDERS: ADMIT Internal Medicine; ATTEND Internal Medicine
DX: R07.9 Chest pain, unspecified (principal); E87.6 Hypokalemia; I11.0 Hypertensive heart disease with heart failure; I25.10 Atherosclerotic heart disease of native coronary artery without angina pectoris; I50.9 Heart failure, unspecified; J44.9 Chronic obstructive pulmonary disease, unspecified; E11.9 Type 2 diabetes mellitus without complications; Z79.4 Long term (current) use of insulin; Z82.49 Family history of ischemic heart disease and other diseases of the circulatory system; Z83.3 Family history of diabetes mellitus; F17.210 Nicotine dependence, cigarettes, uncomplicated; D69.3 Immune thrombocytopenic purpura; E78.5 Hyperlipidemia, unspecified; Z95.0 Presence of cardiac pacemaker; Z95.810 Presence of automatic (implantable) cardiac defibrillator
CPT/HCPCS: 36415; 71045; 80053; 81001; 82553; 82948; 83690; 83735; 83880; 84100; 84484; 84703; 85025; 93005; 96374; 99285; G0378; J1650; J1885

== ENCOUNTER 2018-09-16 13:34 | Observation (INO) | payer MEDICARE, OTHER ==
[2018-09-16 13:45] VITALS: BMI 27.6
--- NOTE | 2018-09-16 13:58 | C.PDOC ---
History Of Present Illness 53 y/o female with a PMH of DM, asthma, COPD, CHF, pacemaker and HLD, ITP presents to the ED complaining of intermittent dizziness since yesterday. States "I feel like I will pass out" and "I feel off balance." Symptoms are not assoc iated with change in position. Patient denies any headache, new chest pain, or SOB. She also complains of persistent left chest wall pain since 08/15/18 s/p pacemaker replacement at [facility] [place]. Patient states left upper chest wall is still swollen and discolored, pain worse with movement. The area is overall less swollen compared to beginner. No fever or chills. Cardiology- Dr. Sebastian Time Seen by Provider: 09/16/18 13:56 Chief Complaint (Nursing): Upper Extremity Problem/Injury History Per: Patient History/Exam Limitations: no limitations Onset/Duration Of Symptoms: Days (x 2) Current Symptoms Are (Timing): Still Present Past Medical History Reviewed: Historical Data, Nursing Documentation, Vital Signs Vital Signs: Last Vital Signs Temp 98.7 F 09/16/18 13:45 Pulse 78 09/16/18 13:45 Resp 18 09/16/18 13:45 BP 91/62 L 09/16/18 13:45 Pulse Ox 98 09/16/18 13:45 - Medical History PMH: Bronchitis, CAD, CHF, COPD, HTN, Hyperlipidemia Denies: Chronic Kidney Disease Surgical History: Cholecystectomy, Pacemaker Family History: States: Unknown Family Hx - Social History Hx Tobacco Use: No Hx Alcohol Use: No Hx Substance Use: No - Immunization History Hx Tetanus Toxoid Vaccination: No Hx Influenza Vaccination: Yes Hx Pneumococcal Vaccination: No Review Of Systems Except As Marked, All Systems Reviewed And Found Negative. Constitutional: Negative for: Fever, Chills Cardiovascular: Positive for: Chest Pain (however no new chest pain). Negative for: Palpitations Respiratory: Negative for: Cough, Shortness of Breath Gastrointestinal: Negative for: Nausea, Vomiting Musculoskeletal: Negative for: Back Pain Neurological: Positive for: Dizziness (feels off balance, near-syncopal). Negative for: Weakness, Numbness, Headache Physical Exam - Physical Exam Appears: Non-toxic, In Acute Distress (mild) Skin: Warm, Dry, Other (+ chronic discoloration to the left upper chest wall, no erythema, non-blanching, skin is intact) Head: Atraumatic, Normacephalic, Other (No vertigo) Eye(s): bilateral: Normal Inspection, PERRL, EOMI Neck: Normal ROM (AROM of neck without difficulty), Supple, Other (No swelling) Chest: Other (Left upper chest with pacemaker intact, diffuse soft tissue tenderness; Swelling to distal implant site extending under the left axilla, with generalized tenderness) Cardiovascular: Rhythm Regular, No Murmur Respiratory: Normal Breath Sounds, No Accessory Muscle Use, Other (NARD) Gastrointestinal/Abdominal: Soft, No Tenderness, No Distention Pulses: Left Radial: Normal, Right Radial: Normal Neurological/Psych: Oriented x3, Normal Speech, Normal Motor, Normal Sensation, Other (Neurologically intact) Gait: Steady ED Course And Treatment - Laboratory Results Result Diagrams: 09/19/18 07:52 09/19/18 07:52 Interpretation Of Abnormal: NEW ONSET RENAL INSUF COMPARED TO PRIOR O2 Sat by Pulse Oximetry: 98 Pulse Ox Interpretation: Normal Progress - Re-Evaluation Re-evaluation Note: 09/16/18 16:52 D/W DR DOCKERY WILL ADMIT. RESIDENT NOTIFIED - Data Reviewed Data Reviewed: Lab, Diagnostic imaging, EKG, Old records Medical Decision Making Medical Decision Making: Initial Impression: Intermittent dizzy spells Initial Plan: - EKG - CMP - CBC - Chest x-ray - CT Head - CT Chest - 50 mg PO Meclizine - 4 mg IV Zofran - 2 mg IV Morphine - Reassess Disposition Counseled Patient/Family Regarding: Studies Performed, Diagnosis - Disposition Disposition: HOSPITALIZED Disposition Time: 16:52 Condition: SERIOUS - Clinical Impression Clinical Impression: Acute renal insufficiency - Scribe Statement The provider has reviewed the documentation as recorded by the Guillermo Donaldson Provider Attestation: All medical record entries made by the Guillermo were at my direction and personally dictated by me. I have reviewed the chart and agree that the record accurately reflects my personal performance of the history, physical exam, medical decision making, and the department course for this patient. I have also personally directed, reviewed, and agree with the discharge instructions and disposition.
[2018-09-16 15:17] LABS: BLOOD UREA NITROGEN 24 mg/dL (7-17); CALCIUM 9.5 mg/dl (8.6-10.4); GFR NON-AFRICAN AMERICAN 25
[2018-09-16 15:19] LABS: ALB/GLOB RATIO 1.7 (1.0-2.1); ALBUMIN 5.3 g/dL (3.5-5.0); ALT/SGPT < 6 U/L (9-52); AST/SGOT 48 U/L (14-36)
[2018-09-16 15:28] LABS: BASO # 0.1 K/uL (0.0-0.2); BASO % 0.7 % (0.0-2.0); EOS # 0.3 K/uL (0.0-0.7); EOS % 2.8 % (0.0-4.0); LYMPH # 4.4 K/uL (1.0-4.3); LYMPH % 36.7 % (20.0-40.0); MEAN CORPUSCULAR HEMOGLOBIN 27.6 pg (27.0-31.0); MEAN PLATELET VOLUME 11.6 fL (7.2-11.7); MONO # 1.1 K/uL (0.0-0.8); MONO % 9.4 % (0.0-10.0); NEUT % 50.4 % (50.0-75.0); NRBC % 0.1 % (0.0-2.0); RBC 5.07 Mil/uL (3.80-5.20); RED CELL DISTRIBUTION WIDTH 14.9 % (11.5-14.5); WHITE BLOOD COUNT 11.9 K/uL (4.8-10.8)
[2018-09-16] MEDS ORDERED: Sodium Chloride 0.9% 250 ML IV ONE (15:28)
[2018-09-16 15:29] LABS: MEAN CELL VOLUME 83.6 fL (81.0-99.0)
--- NOTE | 2018-09-16 15:42 | RAD ---
HISTORY: chest pain COMPARISON: Chest x-ray performed 02/12/18 TECHNIQUE: Chest, one view. FINDINGS: Examination limited by habitus. LUNGS: No focal consolidation. Please note that chest x-ray has limited sensitivity for the detection of pulmonary masses. PLEURA: No significant pleural effusion identified. No definite pneumothorax . CARDIOVASCULAR: Left-sided AICD. Heart size appears within normal limits. OSSEOUS STRUCTURES: No acute osseous abnormality identified. VISUALIZED UPPER ABDOMEN: Unremarkable. OTHER FINDINGS: None. IMPRESSION: No focal consolidation.
--- NOTE | 2018-09-16 16:17 | CT ---
Date of service: 09/16/2018 PROCEDURE: CT HEAD WITHOUT CONTRAST. HISTORY: DIZZY COMPARISON: Noncontrast head CT performed 07/01/13 TECHNIQUE: Axial computed tomography images were obtained through the head/brain without intravenous contrast. Radiation dose: Total exam DLP = 1092.54 mGy-cm. This CT exam was performed using one or more of the following dose reduction techniques: Automated exposure control, adjustment of the mA and/or kV according to patient size, and/or use of iterative reconstruction technique. FINDINGS: HEMORRHAGE: No intracranial hemorrhage. BRAIN: No mass effect or edema. The zaysa-white matter differentiation appears intact. Please note that MRI with diffusion imaging is more sensitive in the detection of acute ischemic event. VENTRICLES: No hydrocephalus. CALVARIUM: Unremarkable. PARANASAL SINUSES: Unremarkable as visualized. No significant inflammatory changes. MASTOID AIR CELLS: Unremarkable as visualized. No inflammatory changes. OTHER FINDINGS: None. IMPRESSION: No acute intracranial pathology identified.
--- NOTE | 2018-09-16 16:29 | CT ---
Date of service: 09/16/2018 CT chest without IV contrast Indication: l upper chest wall SWELL PACEMAKER SITE Technique: Contiguous axial images were obtained through the chest without intravenous contrast enhancement. Sagittal and coronal reconstructions were generated and reviewed. This CT exam was performed using 1 or more of the following dose reduction techniques: Automated exposure control, adjustment of the MAA and/or kV according to patient size, and/or use of iterative reconstruction technique. Radiation dose (DLP): 493.64 MGy-cm. Comparison: None available Findings: Visualized portions of the inferior thyroid gland appear unremarkable. The mediastinal and hilar vascular structures appear within normal limits. Atherosclerotic calcifications of the aorta and branches. Mild cardiomegaly. Small pericardial effusion. Single lead left-sided AICD. Streak artifact in the left chest from AICD battery pack with extensive streak artifact precluding evaluation of the surrounding soft tissues. Mild emphysematous changes. No focal consolidation. No pleural effusion. No pneumothorax. Small hiatal hernia. Limited visualization of the noncontrast upper abdomen: Cholecystectomy clips. Small nonspecific calcifications the pancreatic body measuring approximately 4 mm. No acute osseous abnormality is detected. Impression: Mild cardiomegaly. Small pericardial effusion. Single lead left-sided AICD. Streak artifact in the left chest from AICD battery pack with extensive streak artifact precluding evaluation of the surrounding soft tissues. Mild emphysematous changes. Small hiatal hernia. Limited visualization of the noncontrast upper abdomen: Cholecystectomy clips. Small nonspecific calcifications the pancreatic body measuring approximately 4 mm.
--- NOTE | 2018-09-16 17:21 | CP.PCM.HP ---
History of Present Illness - History of Present Illness History of Present Illness: PGY-1 Katy Garzon D.O. H&P for Dr. Kirby's service: Patient is a 53 yo female with CHF s/p AICD/pacemaker, T2DM, asthma/COPD, HTN, HLD, and ITP who presents with dizziness. She is also complaining of pain over her pacemaker site. She had a replacement pacemaker inserted last [place] on [place]15[place] [facility] states that she left the hospital the same day as the surgery, and she had significant pain and swelling at the pacemaker site on her left chest. She states that for the next few days, she was dizzy upon walking, and this resolved on its own. Patient states that the pain continued despite using cold compresses and Aleve daily. She went to see her PMD Dr. Kirby as an outpatient who prescribed her Clindamycin. Patient finished the antibiotic course but the pain persisted. She then went to the ED at [facility] who prescribed her Bactrim, which she completed. Yesterday, the patient became significantly dizzy while walking, and she says that she nearly fell. The dizziness has persisted when walking and standing today. Patient describes the dizziness and lightheaded and weak. She denies room spinning, falls, or LOC. She says the bruising at the site on her chest has remained about the same. Of note, patient states she was diagnosed with ITP a few years ago. She says that she checks her glucose at home, and it is usually high. She also checks her BP, which she states is usually 120/80. She says last night, after becoming lightheaded, her BP was 100/80. She denies SOB, palpitations, abdominal pain, dysuria, urinary frequency, N/V/D/C. PMH: CHF s/p AICD/pacemaker, T2DM, asthma/COPD, HTN, HLD, ITP PSH: C-sections, cholecystectomy, pacemaker 2009, replacement pacemaker 08/2018 Meds: metformin 500 mg PO BID, Januvia 100 mg PO daily, Glipizide 10 mg PO daily, Humalog 75/25 20 units BID, Crestor 40 mg PO QHS, Coreg 25 mg PO BID, Enalapril 20 mg PO daily, Ventolin PRN All: NKDA FH: father- diabetes, CAD, HTN; mother- HTN; sisters- diabetes SH: unemplyed- used to work at [employer] [facility] [place], lives with son, daughter and grandson; smokes 1/2 ppd x30 years, denies alcohol or illicit drug use PMD: Mirta Cardio: Garett Present on Admission - Present on Admission Any Indicators Present on Admission: No History of DVT/PE: No History of Uncontrolled Diabetes: No Urinary Catheter: No Decubitus Ulcer Present: No History Surgical Site Infection Following: None Review of Systems - Constitutional Constitutional: Weakness. absent: Chills, Fever - EENT Eyes: absent: Change in Vision Ears: absent: Decreased Hearing Nose/Mouth/Throat: absent: Nasal Congestion, Sore Throat - Cardiovascular Cardiovascular: Chest Pain (L chest wall), Pedal Edema. absent: Diaphoresis, Dyspnea, Palpitations - Respiratory Respiratory: absent: Cough, Dyspnea - Gastrointestinal Gastrointestinal: Abdominal Pain (epigastric). absent: Constipation, Diarrhea, Nausea, Vomiting - Genitourinary Genitourinary: absent: Dysuria, Hematuria, Urinary Frequency - Musculoskeletal Musculoskeletal: Neck Pain (L neck). absent: Numbness, Tingling - Integumentary Integumentary: Unusual Bruising (L chest wall). absent: Bleeding Lesions, Lesions - Neurological Neurological: Dizziness, Weakness. absent: Focal Weakness, Headaches, Loss of Vision, Sensory Deficit, Syncope, Other Visual Disturbances - Psychiatric Psychiatric: absent: Anxiety, Depression - Endocrine Endocrine: absent: Palpitations, Polydipsia, Polyuria - Hematologic/Lymphatic Hematologic: Easy Bruising. absent: Easy Bleeding, Lymphadenopathy Past Patient History - Infectious Disease Hx of Infectious Diseases: None - Tetanus Immunizations Tetanus Immunization: Unknown - Past Medical History & Family History Past Medical History?: Yes Pertinent Family History: father- diabetes, CAD, HTN; mother- HTN; sisters- diabetes - Past Social History Smoking Status: Light Smoker < 10 Cigarettes Daily Chewing Tobacco Use: No Cigar Use: No Alcohol: None Drugs: Denies Home Situation {Lives}: With Family - CARDIAC Hx Congestive Heart Failure: Yes Hx Hypertension: Yes Hx Pacemaker: Yes - PULMONARY Hx Bronchitis: Yes Hx Chronic Obstructive Pulmonary Disease (COPD): Yes - NEUROLOGICAL Hx Neurological Disorder: No - HEENT Hx HEENT Problems: No - RENAL Hx Chronic Kidney Disease: No - ENDOCRINE/METABOLIC Hx Endocrine Disorders: Yes Hx Diabetes Mellitus Type 2: Yes - HEMATOLOGICAL/ONCOLOGICAL Hx Blood Disorders: No - INTEGUMENTARY Hx Dermatological Problems: No - MUSCULOSKELETAL/RHEUMATOLOGICAL Hx Musculoskeletal Disorders: No Hx Falls: No - GASTROINTESTINAL Hx Gastrointestinal Disorders: No - GENITOURINARY/GYNECOLOGICAL Hx Genitourinary Disorders: No - PSYCHIATRIC Hx Substance Use: No - SURGICAL HISTORY Hx Cholecystectomy: Yes - ANESTHESIA Hx Anesthesia: Yes Hx Anesthesia Reactions: No Hx Malignant Hyperthermia: No Meds Allergies/Adverse Reactions: Allergies Allergy/AdvReac Type Severity Reaction Status Date / Time carrot Allergy Verified 09/16/18 13:44 Physical Exam - Constitutional Appears: Non-toxic, No Acute Distress - Head Exam Head Exam: ATRAUMATIC, NORMAL INSPECTION - Eye Exam Eye Exam: EOMI, Normal appearance, PERRL - ENT Exam ENT Exam: Mucous Membranes Moist - Neck Exam Neck exam: Positive for: Full Rom, Tenderness (L neck). Negative for: Lymphadenopathy - Respiratory Exam Respiratory Exam: Clear to Auscultation Bilateral, NORMAL BREATHING PATTERN. absent: Wheezes, Respiratory Distress - Cardiovascular Exam Cardiovascular Exam: RRR, +S1, +S2 Additional comments: tenderness to palpation of L chest wall, significant ecchymosis, AICD/pacemaker palpable - GI/Abdominal Exam GI & Abdominal Exam: Soft. absent: Distended, Tenderness - Extremities Exam Extremities exam: Positive for: normal inspection. Negative for: pedal edema, tenderness - Back Exam Back exam: NORMAL INSPECTION. absent: tenderness - Neurological Exam Neurological exam: Alert, CN II-XII Intact, Normal Gait, Oriented x3 - Psychiatric Exam Psychiatric exam: Normal Affect, Normal Mood - Skin Skin Exam: Dry, Normal Color, Warm Results - Vital Signs Recent Vital Signs: Last Vital Signs Temp 98.7 F 09/16/18 13:45 Pulse 75 09/16/18 17:12 Resp 12 09/16/18 17:12 BP 90/55 L 09/16/18 17:12 Pulse Ox 97 09/16/18 17:12 - Labs Result Diagrams: 09/16/18 15:02 09/16/18 15:02 Labs: Laboratory Results - last 24 hr 09/16/18 09/16/18 15:02 15:02 WBC 11.9 H RBC 5.07 Hgb 14.0 Hct 42.4 MCV 83.6 D MCH 27.6 MCHC 33.0 RDW 14.9 H Plt Count 58 L MPV 11.6 Neut % (Auto) 50.4 Lymph % (Auto) 36.7 [place] % (Auto) 9.4 Eos % (Auto) 2.8 Baso % (Auto) 0.7 Neut # (Auto) 6.0 Lymph # (Auto) 4.4 H [place] # (Auto) 1.1 H Eos # (Auto) 0.3 Baso # (Auto) 0.1 Differential Comment Sodium 134 Potassium 5.7 H Chloride 97 L Carbon Dioxide 25 Anion Gap 18 BUN 24 H Creatinine 2.1 H Est GFR ( Amer) 30 Est GFR (Non-Af Amer) 25 Random Glucose 201 H Calcium 9.5 Total Bilirubin 1.6 H AST 48 H D ALT < 6 L D Alkaline Phosphatase 52 Total Protein 8.4 H Albumin 5.3 H D Globulin 3.1 Albumin/Globulin Ratio 1.7 - EKG Data EKG Interpreted by: Myself EKG shows normal: Sinus rhythm Rate: Normal - EKG Data EKG comments: no peaked T waves - Imaging and Cardiology CT scan - head Status: Image reviewed by me, Report reviewed by me CT scan - chest Status: Image reviewed by me, Report reviewed by me Chest x-ray Status: Image reviewed by me, Report reviewed by me Assessment & Plan - Assessment and Plan (Free Text) Assessment: Patient is a 53 yo female with CHF s/p pacemaker, T2DM, ast hma/COPD, HTN, HLD, and ITP who presents with dizziness and pain around AICD/pacemaker site. Found to be in acute renal failure and hypotensive. Plan: Acute renal failure- possibly due to recent IV contrast and/or NSAID use - BUN/Cr is 24/2.1 (baseline creatinine is 0.8-1.2) - K 5.7 - EKG: NSR, no peaked T waves - Albuterol x1 - 1L NS--> NS @ 100 cc/hr - Nephrology consulted (Bautista) Dizziness 2/2 hypotension, acute - CT head: no abnormalities - BP 90s/50s (typically hypertensive) - Orthostatic vitals - 1L NS bolus--> NS @ 100 cc/hr - Hold home BP meds Pain around AICD/pacemaker site, acute - CT chest: streak artifact around area, cannot evaluate soft tissue - Cold/warm compresses - Dilaudid 1 mg IVP Q6H PRN Systolic CHF (HFrEF), chronic- s/p AICD/pacemaker (original 2009, replacement 08/2018) - CXR: cardiomegaly, mild venous congestion - Hold home meds as currently hypotensive - Consider interrogation Type 2 diabetes mellitus, chronic - Accuchecks ACHS - Hypoglycemia protocol - ISS medium Asthma/COPD, chronic - CXR: mild emphysematous changes - Duoneb Q6H PRN Hypertension, chronic - Vitals Q4H - Hold home antihypertensive medications Hyperlipidemia, chronic - Home home Crestor 40 mg PO QHS (elevated AST) Idiopathic thrombocytopenia purpura, chronic - Platelets 58 (baseline 50-80) - Monitor CBC Tobacco use disorder, chronic - Nicoderm daily - Counseled on cessation Ppx: VTE: SCDs, chemical anticoag contraindicated due to thrombocytopenia GI: not indicated Diet: Renal, 2 g Na, heart healthy, low consistent carb Case discussed with attending, Dr. Kirby.
[2018-09-16] MEDS ORDERED: Albuterol 0.083% Inhal Sol (2.5 mg/3 mL) UD INH ONE (17:45)
[2018-09-16] MEDS ORDERED: Glucagon Recombinant 1 mg Inj IM PRN (17:46)
[2018-09-16] MEDS ORDERED: Dextrose 50% SYRINGE Inj (50 ml) IV PRN (17:46)
[2018-09-16 18:25] VITALS: RESP 20
[2018-09-16] MEDS: Sodium Chloride 0.9% 1,000 ML IV SCH (19:11)
[2018-09-16] MEDS: Albuterol-Ipratrop 3 mg / 0.5 (3 ml) UD INH PRN (20:24)
[2018-09-16] MEDS: (Novolin R) Insulin Human Regular 100 units/ml vial SC SCH (21:54)
[2018-09-17] MEDS: Sodium Chloride 0.9% 1,000 ML IV SCH ×3 (04:00→10:56)
[2018-09-17 06:34] LABS: BASO % 0.4 % (0.0-2.0); EOS # 0.2 K/uL (0.0-0.7); EOS % 2.9 % (0.0-4.0); HEMOGLOBIN 13.8 g/dL (11.0-16.0); MEAN CELL VOLUME 83.4 fL (81.0-99.0); MEAN CORPUSCULAR HEMOGLOBIN 27.8 pg (27.0-31.0); MEAN CORPUSCULAR HGB CONC 33.3 g/dL (33.0-37.0); MEAN PLATELET VOLUME 11.2 fL (7.2-11.7); MONO # 0.7 K/uL (0.0-0.8); MONO % 8.9 % (0.0-10.0); NEUT # 4.1 K/uL (1.8-7.0); NEUT % 50.8 % (50.0-75.0); RBC 4.98 Mil/uL (3.80-5.20); RED CELL DISTRIBUTION WIDTH 15.2 % (11.5-14.5); WHITE BLOOD COUNT 8.1 K/uL (4.8-10.8)
[2018-09-17] MEDS: HYDROmorphone 1 mg/ml ISec IVP PRN ×3 (07:04→23:55)
[2018-09-17 07:40] LABS: ALB/GLOB RATIO 1.7 (1.0-2.1); ALBUMIN 4.4 g/dL (3.5-5.0); CALCIUM 9.4 mg/dl (8.6-10.4)
[2018-09-17] MEDS: (Novolin R) Insulin Human Regular 100 units/ml vial SC SCH ×4 (08:30→21:40)
--- NOTE | 2018-09-17 09:47 | CP.PCM.PN ---
Subjective - Date & Time of Evaluation Date of Evaluation: 09/17/18 Time of Evaluation: 09:43 - Subjective Subjective: Medicine Progress Note for Dr. Kirby's service S/E at bedside. Reports chest wall tenderness and some left upper quadrant pain. Decreased with pain medications. Denies fevers, chills, cp, sob, n/v, constipation or diarrhea, and dysuria. Objective - Vital Signs/Intake and Output Vital Signs (last 24 hours): Temp Pulse Resp BP Pulse Ox 98.6 F 73 20 103/69 95 09/17/18 07:35 09/17/18 07:35 09/17/18 07:35 09/17/18 07:35 09/17/18 07:35 Intake and Output: 09/17/18 09/17/18 06:59 18:59 Intake Total 1000 Balance 1000 - Medications Medications: Current Medications Albuterol/Ipratropium (Duoneb 3 Mg/0.5 Mg (3 Ml) Ud) 3 ml INH RQ6 PRN PRN Reason: Shortness of Breath Last Admin: 09/16/18 20:24 Dose: 3 ml Dextrose (Dextrose 50% Inj) 0 ml IV STAT PRN; Protocol PRN Reason: Hypoglycemia Protocol Dextrose (Glutose 15) 0 gm PO ONCE PRN; Protocol PRN Reason: Hypoglycemia Protocol Glucagon (Glucagen Diagnostic Kit) 0 mg IM STAT PRN; Protocol PRN Reason: Hypoglycemia Protocol Hydromorphone HCl (Dilaudid) 1 mg IVP Q6H PRN PRN Reason: Pain, severe (8-10) Last Admin: 09/17/18 07:04 Dose: 1 mg Dextrose (Dextrose 5% In Water 1000 Ml) 1,000 mls @ 0 mls/hr IV .Q0M PRN; Protocol PRN Reason: Hypoglycemia Protocol Sodium Chloride (Sodium Chloride 0.9%) 1,000 mls @ 50 mls/hr IV .Q20H KAYLA Insulin Human Regular (Novolin R) 0 unit SC ACHS KAYLA; Protocol Last Admin: 09/17/18 08:30 Dose: 2 units Nicotine (Nicoderm Cq) 1 patch TD DAILY KAYLA Pneumococcal Polyvalent Vaccine (Pneumovax 23 Vaccine) 0.5 ml SC .ONCE ONE Stop: 09/18/18 10:01 - Labs Labs: 09/17/18 06:27 09/17/18 06:27 - Additional Findings Additional findings: - Constitutional Appears: Non-toxic, No Acute Distress - Head Exam Head Exam: ATRAUMATIC, NORMAL INSPECTION - Eye Exam Eye Exam: EOMI, Normal appearance, PERRL - ENT Exam ENT Exam: Mucous Membranes Moist - Neck Exam Neck exam: Negative for: Lymphadenopathy - Respiratory Exam Respiratory Exam: Clear to Auscultation Bilateral, NORMAL BREATHING PATTERN. absent: Wheezes, Respiratory Distress - Cardiovascular Exam Cardiovascular Exam: RRR, +S1, +S2 Additional comments: tenderness to palpation of L chest wall - GI/Abdominal Exam GI & Abdominal Exam: Soft. absent: Distended, Tenderness - Extremities Exam Extremities exam: Positive for: normal inspection. Negative for: pedal edema, tenderness - Back Exam Back exam: NORMAL INSPECTION. absent: tenderness - Neurological Exam Neurological exam: Alert, CN II-XII Intact, Normal Gait, Oriented x3 - Psychiatric Exam Psychiatric exam: Normal Affect, Normal Mood - Skin Skin Exam: Dry, Normal Color, Warm Assessment and Plan - Assessment and Plan (Free Text) Assessment: Patient is a 53 yo female with CHF s/p pacemaker, T2DM, asthma/COPD, HTN, HLD, and ITP who presents with dizziness and pain around AICD/pacemaker site. Found to be in acute renal failure and hypotensive. Plan: Acute renal failure in setting of hypotensive on admission, possibly related to overmedication for HTN; prerenal etiology likely BUN/Cr improving NS @ 50mls/hr Nephro Consulted: Dr. Baum- appreciate recs Dizziness 2/[address] head: no abnormalities NS @ 50mls/hr Hold home BP meds Pain around AICD/pacemaker site CT chest: streak artifact around area, cannot evaluate soft tissue Cold/warm compresses Dilaudid 1 mg IVP Q6H PRN Cardiology Consult: Dr. Watts- recs appreciated Systolic CHF (HFrEF) s/p AICD/pacemaker (original 2009, replacement 08/2018) CXR: cardiomegaly, mild venous congestion may restart low dose of CHINO-I and betablocker once BP improves and kidney function back to baseline Type 2 diabetes mellitus Accuchecks ACHS Hypoglycemia protocol ISS medium Asthma/COPD CXR: mild emphysematous changes Duoneb Q6H PRN Hypertension normotensive may restart if bp remain elevated Hyperlipidemia Crestor 40 mg PO QHS Idiopathic thrombocytopenia purpura Platelets 58 (baseline 50-80) Monitor CBC Tobacco use disorder Nicoderm daily Counseled on cessation Ppx: VTE: SCDs, chemical anticoag contraindicated due to thrombocytopenia GI: not indicated Diet: Renal, 2 g Na, heart healthy, low consistent carb Case discussed with attending, Dr. Kirby.
--- NOTE | 2018-09-17 13:35 | CP.PCM.CON ---
History of Present Illness - History of Present Illness History of Present Illness: Patient is a 53 yo female with CHF s/p AICD/pacemaker, T2DM, asthma/COPD, HTN, HLD, and ITP who presents with dizziness. She is also complaining of pain over her pacemaker site. She had a replacement pacemaker inserted last month on 08/15/18 at [facility] [place] Patient states that she left the hospital the same day as the surgery, and she had significant pain and swelling at the pacemaker site on her left chest. She states that for the next few days, she was dizzy upon walking, and this resolved on its own. Patient states that the pain continued despite using cold compresses and Aleve daily. She went to see her PMD Dr. Kirby as an outpatient who prescribed her Clindamycin. Patient finished the antibiotic course but the pain persisted. She then went to the ED at [facility] [place] who prescribed her Bactrim, which she completed. Yesterday, the patient became significantly dizzy while walking, and she says that she nearly fell. The d izziness has persisted when walking and standing today. Patient describes the dizziness and lightheaded and weak. She denies room spinning, falls, or LOC. She says the bruising at the site on her chest has remained about the same. Of note, patient states she was diagnosed with ITP a few years ago. She says that she checks her glucose at home, and it is usually high. She also checks her BP, which she states is usually 120/80. She says last night, after becoming lightheaded, her BP was 100/80. She denies SOB, palpitations, abdominal pain, dysuria, urinary frequency, N/V/D/C. Denies h/o CKD Since admission on IV fluids and creatinine decreasing- now 1.6 PMH: CHF s/p AICD/pacemaker, T2DM, asthma/COPD, HTN, HLD, ITP PSH: C-sections, cholecystectomy, pacemaker 2009, replacement pacemaker 08/2018 Meds: metformin 500 mg PO BID, Januvia 100 mg PO daily, Glipizide 10 mg PO daily, Humalog 75/25 20 units BID, Crestor 40 mg PO QHS, Coreg 25 mg PO BID, Enalapril 20 mg PO daily, Ventolin PRN All: NKDA FH: father- diabetes, CAD, HTN; mother- HTN; sisters- diabetes; no CKD SH: unemplyed- used to work at [facility] [employer] [facility] [place], lives with son, daughter and grandson; smokes 1/2 ppd x30 years, denies alcohol or illicit drug use Review of Systems - Constitutional Constitutional: Fatigue, Fever - EENT Eyes: absent: As Per HPI, Blind Spots, Blurred Vision, Change in Vision, Decreased Night Vision, Diplopia, Discharge, Dry Eye, Exophthalmos, Floaters, Irritation, Itchy Eyes, Loss of Peripheral Vision, Pain, Photophobia, Requires Corrective Lenses, Sees Flashes, Spots in Vision, Tunnel Vision, Other Visual D isturbances, Loss of Vision, Other Ears: absent: As Per HPI, Decreased Hearing, Ear Discharge, Ear Pain, Tinnitus, Abnormal Hearing, Disequilibrium, Dizziness, Other Nose/Mouth/Throat: absent: As Per HPI, Epistaxis, Nasal Congestion, Nasal Discharge, Nasal Obstruction, Nasal Trauma, Nose Pain, Post Nasal Drip, Sinus Pain, Sinus Pressure, Bleeding Gums, Change in Voice, Dental Pain, Dry Mouth, Dysphagia, Halitosis, Hoarsness, Lip Swelling, Mouth Lesions, Mouth Pain, Odynophagia, Sore Throat, Throat Swelling, Tongue Swelling, Facial Pain, Neck Pa in, Neck Mass, Other - Cardiovascular Cardiovascular: Dyspnea on Exertion, Lightheadedness - Respiratory Respiratory: Dyspnea on Exertion - Gastrointestinal Gastrointestinal: Nausea, Vomiting - Genitourinary Genitourinary: Voiding Freq/Small Amts - Musculoskeletal Musculoskeletal: Muscle Cramps, Muscle Weakness, Myalgias Past Patient History - Infectious Disease Hx of Infectious Diseases: None - Tetanus Immunizations Tetanus Immunization: Unknown - Past Medical History & Family History Past Medical History?: Yes Past Family History: Reviewed and not pertinent - Past Social History Smoking Status: Current Some Days Smoker Chewing Tobacco Use: No Cigar Use: No Alcohol: None Drugs: Denies Home Situation {Lives}: With Family - CARDIAC Hx Congestive Heart Failure: Yes Hx Hypertension: Yes Hx Pacemaker: Yes - PULMONARY Hx Bronchitis: Yes Hx Chronic Obstructive Pulmonary Disease (COPD): Yes - NEUROLOGICAL Hx Neurological Disorder: No - HEENT Hx HEENT Problems: No - RENAL Hx Chronic Kidney Disease: No - ENDOCRINE/METABOLIC Hx Endocrine Disorders: Yes Hx Diabetes Mellitus Type 2: Yes - HEMATOLOGICAL/ONCOLOGICAL Hx Blood Disorders: No - INTEGUMENTARY Hx Dermatological Problems: No - MUSCULOSKELETAL/RHEUMATOLOGICAL Hx Musculoskeletal Disorders: No Hx Falls: No - GASTROINTESTINAL Hx Gastrointestinal Disorders: No - GENITOURINARY/GYNECOLOGICAL Hx Genitourinary Disorders: No - PSYCHIATRIC Hx Substance Use: No - SURGICAL HISTORY Hx Cholecystectomy: Yes - ANESTHESIA Hx Anesthesia: Yes Hx Anesthesia Reactions: No Hx Malignant Hyperthermia: No Meds Allergies/Adverse Reactions: Allergies Allergy/AdvReac Type Severity Reaction Status Date / Time carrot Allergy Verified 09/16/18 13:44 - Medications Medications: Current Medications Albuterol/Ipratropium (Duoneb 3 Mg/0.5 Mg (3 Ml) Ud) 3 ml INH RQ6 PRN PRN Reason: Shortness of Breath Last Admin: 09/16/18 20:24 Dose: 3 ml Dextrose (Dextrose 50% Inj) 0 ml IV STAT PRN; Protocol PRN Reason: Hypoglycemia Protocol Dextrose (Glutose 15) 0 gm PO ONCE PRN; Protocol PRN Reason: Hypoglycemia Protocol Glucagon (Glucagen Diagnostic Kit) 0 mg IM STAT PRN; Protocol PRN Reason: Hypoglycemia Protocol Hydromorphone HCl (Dilaudid) 1 mg IVP Q6H PRN PRN Reason: Pain, severe (8-10) Last Admin: 09/17/18 07:04 Dose: 1 mg Dextrose (Dextrose 5% In Water 1000 Ml) 1,000 mls @ 0 mls/hr IV .Q0M PRN; Prot ocol PRN Reason: Hypoglycemia Protocol Sodium Chloride (Sodium Chloride 0.9%) 1,000 mls @ 50 mls/hr IV .Q20H [facility] Last Admin: 09/17/18 10:56 Dose: 50 mls/hr Insulin Human Regular (Novolin R) 0 unit SC ACHS [facility]; Protocol Last Admin: 09/17/18 12:08 Dose: 6 units Nicotine (Nicoderm Cq) 1 patch TD DAILY [facility] Last Admin: 09/17/18 10:57 Dose: 1 patch Pneumococcal Polyvalent Vaccine (Pneumovax 23 Vaccine) 0.5 ml SC .ONCE ONE Stop: 09/18/18 10:01 Rosuvastatin Calcium (Crestor) 40 mg PO HS [facility] Physical Exam - Constitutional Appears: No Acute Distress, Chronically Ill - Head Exam Head Exam: ATRAUMATIC, NORMAL INSPECTION - Eye Exam Eye Exam: EOMI, Normal appearance - Neck Exam Neck exam: Positive for: Normal Inspection. Negative for: Tenderness - Respiratory Exam Respiratory Exam: Clear to Auscultation Bilateral, NORMAL BREATHING PATTERN - Cardiovascular Exam Cardiovascular Exam: REGULAR RHYTHM, +S1 - GI/Abdominal Exam GI & Abdominal Exam: Soft. absent: Tenderness - Extremities Exam Extremities exam: Positive for: normal inspection. Negative for: tenderness - Neurological Exam Neurological exam: Alert, CN II-XII Intact - Skin Skin Exam: Dry, Intact, Warm Results - Vital Signs Recent Vital Signs: Last Vital Signs Temp 98.6 F 09/17/18 07:35 Pulse 73 09/17/18 07:35 Resp 20 09/17/18 07:35 BP 103/69 09/17/18 07:35 Pulse Ox 95 09/17/18 12:00 - Labs Result Diagrams: 09/17/18 06:27 09/17/18 06:27 Labs: Laboratory Results - last 24 hr 09/16/18 09/16/18 09/16/18 15:02 15:02 21:34 WBC 11.9 H RBC 5.07 Hgb 14.0 Hct 42.4 MCV 83.6 D MCH 27.6 MCHC 33.0 RDW 14.9 H Plt Count 58 L MPV 11.6 Neut % (Auto) 50.4 Lymph % (Auto) 36.7 [place] % (Auto) 9.4 Eos % (Auto) 2.8 Baso % (Auto) 0.7 Neut # (Auto) 6.0 Lymph # (Auto) 4.4 H [place] # (Auto) 1.1 H Eos # (Auto) 0.3 Baso # (Auto) 0.1 Differential Comment Sodium 134 Potassium 5.7 H Chloride 97 L Carbon Dioxide 25 Anion Gap 18 BUN 24 H Creatinine 2.1 H Est GFR ( Amer) 30 Est GFR (Non-Af Amer) 25 POC Glucose (mg/dL) 220 H Random Glucose 201 H Calcium 9.5 Phosphorus Magnesium Total Bilirubin 1.6 H AST 48 H D ALT < 6 L D Alkaline Phosphatase 52 Total Protein 8.4 H Albumin 5.3 H D Globulin 3.1 Albumin/Globulin Ratio 1.7 09/17/18 09/17/18 09/17/18 06:27 06:27 07:23 WBC 8.1 RBC 4.98 Hgb 13.8 Hct 41.5 MCV 83.4 MCH 27.8 MCHC 33.3 RDW 15.2 H Plt Count 50 L MPV 11.2 Neut % (Auto) 50.8 Lymph % (Auto) 37.0 [place] % (Auto) 8.9 Eos % (Auto) 2.9 Baso % (Auto) 0.4 Neut # (Auto) 4.1 Lymph # (Auto) 3.0 [place] # (Auto) 0.7 Eos # (Auto) 0.2 Baso # (Auto) 0.0 Differential Comment Sodium 138 Potassium 4.1 Chloride 103 Carbon Dioxide 29 Anion Gap 10 BUN 20 H Creatinine 1.6 H Est GFR ( Amer) 41 Est GFR (Non-Af Amer) 34 POC Glucose (mg/dL) 183 H Random Glucose 177 H Calcium 9.4 Phosphorus 3.4 Magnesium 1.9 Total Bilirubin 0.7 AST 29 ALT 18 Alkaline Phosphatase 58 Total Protein 6.9 Albumin 4.4 Globulin 2.5 Albumin/Globulin Ratio 1.7 09/17/18 11:21 WBC RBC Hgb Hct MCV MCH MCHC RDW Plt Count MPV Neut % (Auto) Lymph % (Auto) [place] % (Auto) Eos % (Auto) Baso % (Auto) Neut # (Auto) Lymph # (Auto) [place] # (Auto) Eos # (Auto) Baso # (Auto) Differential Comment Sodium Potassium Chloride Carbon Dioxide Anion Gap BUN Creatinine Est GFR ( Amer) Est GFR (Non-Af Amer) POC Glucose (mg/dL) 304 H Random Glucose Calcium Phosphorus Magnesium Total Bilirubin AST ALT Alkaline Phosphatase Total Protein Albumin Globulin Albumin/Globulin Ratio Assessment & Plan (1) Cardiomyopathy Status: Acute (2) EMILY (acute kidney injury) Status: Acute (3) DM type 2 (diabetes mellitus, type 2) Status: Acute - Assessment and Plan (Free Text) Assessment: EMILY exacerbated by NSAID use Likely had infection post ICD battery change Plan: Agree with IV fluids Daily chemistries renal US check for proteinuria
--- NOTE | 2018-09-17 14:48 | US ---
Date of service: 09/17/2018 PROCEDURE: Ultrasound of the Kidneys HISTORY: bon eval COMPARISON: CT abdomen and pelvis without contrast performed 12/13/16 TECHNIQUE: Sonogram of the kidneys. FINDINGS: RIGHT KIDNEY: Measures: 12.1 x 6.0 x 5.7 cm. No obstructing calculus or hydronephrosis identified. LEFT KIDNEY: Measures: 12.2 x 6.0 x 5.6 cm. No obstructing calculus or hydronephrosis identified. OTHER FINDINGS: None. IMPRESSION: Unremarkable renal sonogram as above.
[2018-09-17] MEDS: Albuterol-Ipratrop 3 mg / 0.5 (3 ml) UD INH PRN (19:51)
[2018-09-17 20:13] LABS: SQUAMOUS EPITHIAL < 1 /hpf (0-5); URINE BACTERIA OCC (<OCC); URINE BILIRUBIN NEGATIVE (NEGATIVE); URINE BLOOD NEGATIVE (NEGATIVE); URINE CLARITY Clear (Clear); URINE COLOR Straw (YELLOW); URINE GLUCOSE (UA) 3+ mg/dL (Normal); URINE LEUKOCYTE ESTERASE NEG Leu/uL (Negative); URINE PROTEIN NEGATIVE (NEGATIVE); URINE UROBILINOGEN NORMAL mg/dL (0.2-1.0)
--- NOTE | 2018-09-18 00:14 | CP.PCM.CON ---
History of Present Illness - History of Present Illness History of Present Illness: Cardiac-Electrophysiology comnsult Re: chest pain Pain around the ICD pocket Ms. Barron presented with chest pain and dizziness without syncope The pain dates post generator change originates in the left side of the neck and radiates down the left shoulder and in the region of the device; denied fever discharge rash Prior issues include systemic hypertension cardiomyopaty ITP Medications: crestor carvedilol enalapril Exam Afebrile Normal venous pressures Tenderness over the left neck and over the periclavicular region extending onto the device pocket ICD Pocket: mild discoloration with some fullness Incision healed; no discharge Clear lungs Normal heart sounds No edema Labs: reviewed CT chest Reviewed Chest pain syndrome and dizziness The index pain is of unclear anatomical origin and mechanism; cristina in the neck region suggestive a radiculopathy Despite the temporal association its unlikely to be related to post surgical paresthesia given the exquisiite tenderness without other inflammatory signs; there is no evidence of infection- local or systemic The subtle discoloration would recede over time There is no suggestion of device dysfunction Dizziness is undifferentiated; there is no obvious Cardiac rhythm basis; would interrogate the device Plan ICD interrogation Neuro/Pain consult Past Patient History - Infectious Disease Hx of Infectious Diseases: None - Tetanus Immunizations Tetanus Immunization: Unknown - Past Medical History & Family History Past Medical History?: Yes Past Family History: Reviewed and not pertinent - Past Social History Smoking Status: Current Some Days Smoker Chewing Tobacco Use: No Cigar Use: No Alcohol: None Drugs: Denies Home Situation {Lives}: With Family - CARDIAC Hx Congestive Heart Failure: Yes Hx Hypertension: Yes Hx Pacemaker: Yes - PULMONARY Hx Bronchitis: Yes Hx Chronic Obstructive Pulmonary Disease (COPD): Yes - NEUROLOGICAL Hx Neurological Disorder: No - HEENT Hx HEENT Problems: No - RENAL Hx Chronic Kidney Disease: No - ENDOCRINE/METABOLIC Hx Endocrine Disorders: Yes Hx Diabetes Mellitus Type 2: Yes - HEMATOLOGICAL/ONCOLOGICAL Hx Blood Disorders: No - INTEGUMENTARY Hx Dermatological Problems: No - MUSCULOSKELETAL/RHEUMATOLOGICAL Hx Musculoskeletal Disorders: No Hx Falls: No - GASTROINTESTINAL Hx Gastrointestinal Disorders: No - GENITOURINARY/GYNECOLOGICAL Hx Genitourinary Disorders: No - PSYCHIATRIC Hx Substance Use: No - SURGICAL HISTORY Hx Cholecystectomy: Yes - ANESTHESIA Hx Anesthesia: Yes Hx Anesthesia Reactions: No Hx Malignant Hyperthermia: No Meds Allergies/Adverse Reactions: Allergies Allergy/AdvReac Type Severity Reaction Status Date / Time carrot Allergy Verified 09/16/18 13:44 - Medications Medications: Current Medications Albuterol/Ipratropium (Duoneb 3 Mg/0.5 Mg (3 Ml) Ud) 3 ml INH RQ6 PRN PRN Reason: Shortness of Breath Last Admin: 09/17/18 19:51 Dose: 3 ml Dextrose (Dextrose 50% Inj) 0 ml IV STAT PRN; Protocol PRN Reason: Hypoglycemia Protocol Dextrose (Glutose 15) 0 gm PO ONCE PRN; Protocol PRN Reason: Hypoglycemia Protocol Glucagon (Glucagen Diagnostic Kit) 0 mg IM STAT PRN; Protocol PRN Reason: Hypoglycemia Protocol Hydromorphone HCl (Dilaudid) 1 mg IVP Q6H PRN PRN Reason: Pain, severe (8-10) Last Admin: 09/17/18 23:55 Dose: 1 mg Dextrose (Dextrose 5% In Water 1000 Ml) 1,000 mls @ 0 mls/hr IV .Q0M PRN; Protocol PRN Reason: Hypoglycemia Protocol Sodium Chloride (Sodium Chloride 0.9%) 1,000 mls @ 50 mls/hr IV .Q20H [facility] Last Admin: 09/17/18 10:56 Dose: 50 mls/hr Insulin Human Regular (Novolin R) 0 unit SC ACHS [facility]; Protocol Last Admin: 09/17/18 21:40 Dose: 2 units Nicotine (Nicoderm Cq) 1 patch TD DAILY [facility] Last Admin: 09/17/18 10:57 Dose: 1 patch Pneumococcal Polyvalent Vaccine (Pneumovax 23 Vaccine) 0.5 ml SC .ONCE ONE Stop: 09/18/18 10:01 Rosuvastatin Calcium (Crestor) 40 mg PO HS [facility] Last Admin: 09/17/18 21:40 Dose: 40 mg Results - Vital Signs Recent Vital Signs: Last Vital Signs Temp 97.1 F L 09/17/18 23:05 Pulse 71 09/17/18 23:05 Resp 20 09/17/18 23:05 BP 110/75 09/17/18 23:05 Pulse Ox 97 09/17/18 23:05 - Labs Result Diagrams: 09/17/18 06:27 09/17/18 06:27 Labs: Laboratory Results - last 24 hr 09/17/18 09/17/18 09/17/18 06:27 06:27 07:23 WBC 8.1 RBC 4.98 Hgb 13.8 Hct 41.5 MCV 83.4 MCH 27.8 MCHC 33.3 RDW 15.2 H Plt Count 50 L MPV 11.2 Neut % (Auto) 50.8 Lymph % (Auto) 37.0 [place] % (Auto) 8.9 Eos % (Auto) 2.9 Baso % (Auto) 0.4 Neut # (Auto) 4.1 Lymph # (Auto) 3.0 [place] # (Auto) 0.7 Eos # (Auto) 0.2 Baso # (Auto) 0.0 Sodium 138 Potassium 4.1 Chloride 103 Carbon Dioxide 29 Anion Gap 10 BUN 20 H Creatinine 1.6 H Est GFR ( Amer) 41 Est GFR (Non-Af Amer) 34 POC Glucose (mg/dL) 183 H Random Glucose 177 H Calcium 9.4 Phosphorus 3.4 Magnesium 1.9 Total Bilirubin 0.7 AST 29 ALT 18 Alkaline Phosphatase 58 Total Protein 6.9 Albumin 4.4 Globulin 2.5 Albumin/Globulin Ratio 1.7 Urine Color Urine Clarity Urine pH Ur Specific [place] Urine Protein Urine Glucose (UA) Urine Ketones Urine Blood Urine Nitrate Urine Bilirubin Urine Urobilinogen Ur Leukocyte Esterase Urine WBC (Auto) Urine RBC (Auto) Ur Squamous Epith Cells Urine Bacteria 09/17/18 09/17/18 09/17/18 11:21 15:52 19:43 WBC RBC Hgb Hct MCV MCH MCHC RDW Plt Count MPV Neut % (Auto) Lymph % (Auto) [place] % (Auto) Eos % (Auto) Baso % (Auto) Neut # (Auto) Lymph # (Auto) [place] # (Auto) Eos # (Auto) Baso # (Auto) Sodium Potassium Chloride Carbon Dioxide Anion Gap BUN Creatinine Est GFR ( Amer) Est GFR (Non-Af Amer) POC Glucose (mg/dL) 304 H 399 H Random Glucose Calcium Phosphorus Magnesium Total Bilirubin AST ALT Alkaline Phosphatase Total Protein Albumin Globulin Albumin/Globulin Ratio Urine Color Straw Urine Clarity Clear Urine pH 7.0 Ur Specific [place] 1.007 Urine Protein Negative Urine Glucose (UA) 3+ H Urine Ketones Negative Urine Blood Negative Urine Nitrate Negative Urine Bilirubin Negative Urine Urobilinogen Normal Ur Leukocyte Esterase Neg Urine WBC (Auto) 1 Urine RBC (Auto) < 1 Ur Squamous Epith Cells < 1 Urine Bacteria Occ H
[2018-09-18] MEDS: Sodium Chloride 0.9% 1,000 ML IV SCH (00:15)
--- NOTE | 2018-09-18 06:34 | CARD ---
APPROVED REPORT Date of service: 09/16/2018 EKG Measurement Heart [id number] <Conclusion> Normal sinus rhythm Cannot rule out Anterior infarct, age undetermined Abnormal ECG
[2018-09-18 07:33] LABS: BASO # 0.1 K/uL (0.0-0.2); EOS # 0.2 K/uL (0.0-0.7); EOS % 3.2 % (0.0-4.0); HEMOGLOBIN 13.1 g/dL (11.0-16.0); LYMPH # 3.1 K/uL (1.0-4.3); LYMPH % 40.8 % (20.0-40.0); MEAN CELL VOLUME 83.9 fL (81.0-99.0); MEAN CORPUSCULAR HEMOGLOBIN 28.1 pg (27.0-31.0); MEAN CORPUSCULAR HGB CONC 33.4 g/dL (33.0-37.0); MEAN PLATELET VOLUME 10.4 fL (7.2-11.7); MONO # 0.7 K/uL (0.0-0.8); MONO % 9.7 % (0.0-10.0); NEUT # 3.4 K/uL (1.8-7.0); NEUT % 45.3 % (50.0-75.0); NRBC % 0.1 % (0.0-2.0); RBC 4.67 Mil/uL (3.80-5.20); RED CELL DISTRIBUTION WIDTH 14.9 % (11.5-14.5); WHITE BLOOD COUNT 7.6 K/uL (4.8-10.8)
--- NOTE | 2018-09-18 07:48 | CP.PCM.PN ---
Subjective - Date & Time of Evaluation Date of Evaluation: 09/18/18 Time of Evaluation: 07:43 - Subjective Subjective: Medicine Progress Note for Dr. Kirby's service S/E at bedside. Still complains of pain at site of pacemaker. No acute events overnight as per nursing. Denies f/c, cp, sob, n/v, constipation or diarrhea, and dysuria. Objective - Vital Signs/Intake and Output Vital Signs (last 24 hours): Temp Pulse Resp BP Pulse Ox 97.1 F L 71 20 110/75 97 09/17/18 23:05 09/17/18 23:05 09/17/18 23:05 09/17/18 23:05 09/18/18 04:25 Intake and Output: 09/18/18 09/18/18 06:59 18:59 Intake Total 1390 Balance 1390 - Medications Medications: Current Medications Albuterol/Ipratropium (Duoneb 3 Mg/0.5 Mg (3 Ml) Ud) 3 ml INH RQ6 PRN PRN Reason: Shortness of Breath Last Admin: 09/17/18 19:51 Dose: 3 ml Dextrose (Dextrose 50% Inj) 0 ml IV STAT PRN; Protocol PRN Reason: Hypoglycemia Protocol Dextrose (Glutose 15) 0 gm PO ONCE PRN; Protocol PRN Reason: Hypoglycemia Protocol Glucagon (Glucagen Diagnostic Kit) 0 mg IM STAT PRN; Protocol PRN Reason: Hypoglycemia Protocol Hydromorphone HCl (Dilaudid) 1 mg IVP Q6H PRN PRN Reason: Pain, severe (8-10) Last Admin: 09/17/18 23:55 Dose: 1 mg Dextrose (Dextrose 5% In Water 1000 Ml) 1,000 mls @ 0 mls/hr IV .Q0M PRN; Pro tocol PRN Reason: Hypoglycemia Protocol Sodium Chloride (Sodium Chloride 0.9%) 1,000 mls @ 50 mls/hr IV .Q20H [facility] Last Admin: 09/18/18 00:15 Dose: 50 mls/hr Insulin Human Regular (Novolin R) 0 unit SC ACHS [facility]; Protocol Last Admin: 09/17/18 21:40 Dose: 2 units Nicotine (Nicoderm Cq) 1 patch TD DAILY [facility] Last Admin: 09/17/18 10:57 Dose: 1 patch Pneumococcal Polyvalent Vaccine (Pneumovax 23 Vaccine) 0.5 ml SC .ONCE ONE Stop: 09/18/18 10:01 Rosuvastatin Calcium (Crestor) 40 mg PO HS [facility] Last Admin: 09/17/18 21:40 Dose: 40 mg - Labs Labs: 09/17/18 06:27 09/17/18 06:27 - Additional Findings Additional findings: - Constitutional Appears: Non-toxic, No Acute Distress - Head Exam Head Exam: ATRAUMATIC, NORMAL INSPECTION - Eye Exam Eye Exam: EOMI, Normal appearance, PERRL - ENT Exam ENT Exam: Mucous Membranes Moist - Neck Exam Neck exam: Negative for: Lymphadenopathy - Respiratory Exam Respiratory Exam: Clear to Auscultation Bilateral, NORMAL BREATHING PATTERN. absent: Wheezes, Respiratory Distress - Cardiovascular Exam Cardiovascular Exam: RRR, +S1, +S2 Additional comments: tenderness to palpation of L chest wall - GI/Abdominal Exam GI & Abdominal Exam: Soft. absent: Distended, Tenderness - Extremities Exam Extremities exam: Positive for: normal inspection. Negative for: pedal edema, tenderness - Back Exam Back exam: NORMAL INSPECTION. absent: tenderness - Neurological Exam Neurological exam: Alert, CN II-XII Intact, Normal Gait, Oriented x3 - Psychiatric Exam Psychiatric exam: Normal Affect, Normal Mood - Skin Skin Exam: Dry, Normal Color, Warm Assessment and Plan - Assessment and Plan (Free Text) Assessment: Patient is a 53 yo female with CHF s/p pacemaker, T2DM, asthma/COPD, HTN, HLD, and ITP who presents with dizziness and pain around AICD/pacemaker site. Found to be in acute renal failure and hypotensive. Plan: Acute renal failure in setting of hypotensive on admission, possibly related to overmedication for HTN; prerenal etiology likely BUN/Cr improving Renal US resolved Nephro Consulted: Dr. Baum- agrees with IV fluids, and daily CMPs Dizziness 2/2 hypotension (resolved) CT head: no abnormalities Hold home BP meds Pain around AICD/pacemaker site CT chest: streak artifact around area, cannot evaluate soft tissue Cold/warm compresses Dilaudid 1 mg IVP Q6H PRN Cardiology Consult: Dr. Watts- ICD interrogation, recommends neuro/pain consult Systolic CHF (HFrEF) s/p AICD/pacemaker (original 2009, replacement 08/2018) CXR: cardiomegaly, mild venous congestion may restart low dose of CHINO-I and betablocker once BP improves and kidney function back to baseline Type 2 diabetes mellitus Accuchecks ACHS Hypoglycemia protocol ISS medium Asthma/COPD CXR: mild emphysematous changes Duoneb Q6H PRN Hypertension normotensive may restart if bp remain elevated Hyperlipidemia Crestor 40 mg PO QHS Idiopathic thrombocytopenia purpura Platelets 58 (baseline 50-80) Monitor CBC Tobacco use disorder Nicoderm daily Counseled on cessation Ppx: VTE: SCDs, chemical anticoag contraindicated due to thrombocytopenia GI: not indicated Diet: Renal, 2 g Na, heart healthy, low consistent carb Case discussed with attending, Dr. Kirby.
[2018-09-18 07:53] LABS: ALB/GLOB RATIO 1.6 (1.0-2.1); ALBUMIN 4.3 g/dL (3.5-5.0); CALCIUM 9.4 mg/dl (8.6-10.4)
[2018-09-18] MEDS: (Novolin R) Insulin Human Regular 100 units/ml vial SC SCH ×3 (08:22→21:16)
[2018-09-18] MEDS: HYDROmorphone 1 mg/ml ISec IVP PRN ×3 (08:27→21:16)
[2018-09-18] MEDS ORDERED: Pneumococcal 23-Valent Vaccine SC ONE (10:00)
--- NOTE | 2018-09-18 10:41 | CP.PCM.PN ---
Subjective - Date & Time of Evaluation Date of Evaluation: 09/18/18 Time of Evaluation: 10:39 - Subjective Subjective: feels better EMILY resolving sl tenderness at ICD site still- better overall BP stable- not orthostatic now no other new complaint renal US normal Objective - Vital Signs/Intake and Output Vital Signs (last 24 hours): Temp Pulse Resp BP Pulse Ox 98.4 F 82 20 114/78 96 09/18/18 08:12 09/18/18 08:12 09/18/18 08:12 09/18/18 08:12 09/18/18 08:12 Intake and Output: 09/18/18 09/18/18 06:59 18:59 Intake Total 1390 Balance 1390 - Medications Medications: Current Medications Albuterol/Ipratropium (Duoneb 3 Mg/0.5 Mg (3 Ml) Ud) 3 ml INH RQ6 PRN PRN Reason: Shortness of Breath Last Admin: 09/17/18 19:51 Dose: 3 ml Dextrose (Dextrose 50% Inj) 0 ml IV STAT PRN; Protocol PRN Reason: Hypoglycemia Protocol Dextrose (Glutose 15) 0 gm PO ONCE PRN; Protocol PRN Reason: Hypoglycemia Protocol Glucagon (Glucagen Diagnostic Kit) 0 mg IM STAT PRN; Protocol PRN Reason: Hypoglycemia Protocol Hydromorphone HCl (Dilaudid) 1 mg IVP Q6H PRN PRN Reason: Pain, severe (8-10) Last Admin: 09/18/18 08:27 Dose: 1 mg Dextrose (Dextrose 5% In Water 1000 Ml) 1,000 mls @ 0 mls/hr IV .Q0M PRN; Protocol PRN Reason: Hypoglycemia Protocol Sodium Chloride (Sodium Chloride 0.9%) 1,000 mls @ 50 mls/hr IV .Q20H [facility] Last Admin: 09/18/18 00:15 Dose: 50 mls/hr Insulin Human Regular (Novolin R) 0 unit SC ACHS [facility]; Protocol Last Admin: 09/18/18 08:22 Dose: 3 units Nicotine (Nicoderm Cq) 1 patch TD DAILY [facility] Last Admin: 09/18/18 10:05 Dose: 1 patch Rosuvastatin Calcium (Crestor) 40 mg PO HS [facility] Last Admin: 09/17/18 21:40 Dose: 40 mg - Labs Labs: 09/18/18 07:27 09/18/18 07:27 - Constitutional Appears: No Acute Distress, Chronically Ill - Head Exam Head Exam: ATRAUMATIC, NORMAL INSPECTION - Eye Exam Eye Exam: EOMI, Normal appearance - Neck Exam Neck Exam: Normal Inspection. absent: Tenderness - Respiratory Exam Respiratory Exam: Clear to Ausculation Bilateral, NORMAL BREATHING PATTERN - Cardiovascular Exam Cardiovascular Exam: REGULAR RHYTHM, +S1 - GI/Abdominal Exam GI & Abdominal Exam: Soft. absent: Tenderness - Extremities Exam Extremities Exam: Normal Inspection. absent: Tenderness - Neurological Exam Neurological Exam: Awake, CN II-XII Intact - Skin Skin Exam: Dry, Warm Assessment and Plan (1) Cardiomyopathy Status: Acute (2) EMILY (acute kidney injury) Status: Acute (3) DM type 2 (diabetes mellitus, type 2) Status: Acute - Assessment and Plan (Free Text) Plan: stop IV fluids follow up chemistries, BP
[2018-09-19 00:07] VITALS: O2SAT 98
[2018-09-19] MEDS: HYDROmorphone 1 mg/ml ISec IVP PRN (03:24)
[2018-09-19 08:01] LABS: BASO # 0.1 K/uL (0.0-0.2); BASO % 0.9 % (0.0-2.0); EOS # 0.3 K/uL (0.0-0.7); EOS % 3.1 % (0.0-4.0); LYMPH # 3.5 K/uL (1.0-4.3); LYMPH % 41.5 % (20.0-40.0); MEAN CORPUSCULAR HEMOGLOBIN 28.1 pg (27.0-31.0); MEAN CORPUSCULAR HGB CONC 33.4 g/dL (33.0-37.0); MEAN PLATELET VOLUME 11.4 fL (7.2-11.7); MONO # 0.7 K/uL (0.0-0.8); MONO % 8.3 % (0.0-10.0); NEUT # 3.9 K/uL (1.8-7.0); NEUT % 46.2 % (50.0-75.0); NRBC % 0.1 % (0.0-2.0); RED CELL DISTRIBUTION WIDTH 14.9 % (11.5-14.5); WHITE BLOOD COUNT 8.5 K/uL (4.8-10.8)
[2018-09-19 08:09] VITALS: BP 130/84; PULSE 86; TEMP 98.3
[2018-09-19] MEDS: (Novolin R) Insulin Human Regular 100 units/ml vial SC SCH ×2 (08:26→11:40)
[2018-09-19 08:31] LABS: ALB/GLOB RATIO 1.6 (1.0-2.1); ALBUMIN 4.7 g/dL (3.5-5.0); CALCIUM 10.1 mg/dl (8.6-10.4)
--- NOTE | 2018-09-19 10:35 | CP.PCM.DIS ---
Provider - Provider Date of Admission: 09/16/18 16:54 Attending physician: Thierno Kirby Jr, MD Consults: 09/16/18 19:00 Nephrology Consult Routine Comment: Consulting Provider: Sudhakar Baum Consulting Physician: Sudhakar Baum Reason for Consult: acute renal failure 09/17/18 10:10 Cardiology Consult Routine Comment: Consulting Provider: Pastor Watts Consulting Physician: Pastor Watts Reason for Consult: pain s/p pacemaker replacement; 1 month since replacement Time Spent in preparation of Discharge (in minutes): 33 Diagnosis - Discharge Diagnosis (1) EMILY (acute kidney injury) Status: Resolved (2) DM type 2 (diabetes mellitus, type 2) Status: Chronic (3) Chest pain Status: Resolved Hospital Course - Lab Results Lab Results: Most Recent Lab Values WBC 8.5 K/uL (4.8-10.8) 09/19/18 07:52 RBC 5.00 Mil/uL (3.80-5.20) 09/19/18 07:52 Hgb 14.0 g/dL (11.0-16.0) 09/19/18 07:52 Hct 42.0 % (34.0-47.0) 09/19/18 07:52 MCV 84.0 fL (81.0-99.0) 09/19/18 07:52 MCH 28.1 pg (27.0-31.0) 09/19/18 07:52 MCHC 33.4 g/dL (33.0-37.0) 09/19/18 07:52 RDW 14.9 % (11.5-14.5) H 09/19/18 07:52 Plt Count 55 K/uL (130-400) L 09/19/18 07:52 MPV 11.4 fL (7.2-11.7) 09/19/18 07:52 Neut % (Auto) 46.2 % (50.0-75.0) L 09/19/18 07:52 Lymph % (Auto) 41.5 % (20.0-40.0) H 09/19/18 07:52 [place] % (Auto) 8.3 % (0.0-10.0) 09/19/18 07:52 Eos % (Auto) 3.1 % (0.0-4.0) 09/19/18 07:52 Baso % (Auto) 0.9 % (0.0-2.0) 09/19/18 07:52 Neut # (Auto) 3.9 K/uL (1.8-7.0) 09/19/18 07:52 Lymph # (Auto) 3.5 K/uL (1.0-4.3) 09/19/18 07:52 [place] # (Auto) 0.7 K/uL (0.0-0.8) 09/19/18 07:52 Eos # (Auto) 0.3 K/uL (0.0-0.7) 09/19/18 07:52 Baso # (Auto) 0.1 K/uL (0.0-0.2) 09/19/18 07:52 Differential Comment 09/16/18 15:02 Sodium 136 mmol/L (132-148) 09/19/18 07:52 Potassium 4.4 mmol/L (3.6-5.2) 09/19/18 07:52 Chloride 105 mmol/L (98-107) 09/19/18 07:52 Carbon Dioxide 24 mmol/L (22-30) 09/19/18 07:52 Anion Gap 12 (10-20) 09/19/18 07:52 BUN 14 mg/dL (7-17) 09/19/18 07:52 Creatinine 1.2 mg/dL (0.7-1.2) 09/19/18 07:52 Est GFR ( Amer) 57 09/19/18 07:52 Est GFR (Non-Af Amer) 47 09/19/18 07:52 POC Glucose (mg/dL) 337 mg/dL (65-110) H 09/19/18 07:08 Random Glucose 299 mg/dL (65-105) H D 09/19/18 07:52 Calcium 10.1 mg/dl (8.6-10.4) 09/19/18 07:52 Phosphorus 3.4 mg/dL (2.5-4.5) 09/19/18 07:52 Magnesium 1.6 mg/dL (1.6-2.3) 09/19/18 07:52 Total Bilirubin 0.6 mg/dL (0.2-1.3) 09/19/18 07:52 AST 40 U/L (14-36) H D 09/19/18 07:52 ALT 33 U/L (9-52) 09/19/18 07:52 Alkaline Phosphatase 61 U/L (38-126) 09/19/18 07:52 Total Protein 7.7 g/dL (6.3-8.3) 09/19/18 07:52 Albumin 4.7 g/dL (3.5-5.0) 09/19/18 07:52 Globulin 3.0 gm/dL (2.2-3.9) 09/19/18 07:52 Albumin/Globulin Ratio 1.6 (1.0-2.1) 09/19/18 07:52 Urine Color Straw (YELLOW) 09/17/18 19:43 Urine Clarity Clear (Clear) 09/17/18 19:43 Urine pH 7.0 (5.0-8.0) 09/17/18 19:43 Ur Specific [place] 1.007 (1.003-1.030) 09/17/18 19:43 Urine Protein Negative mg/dL (NEGATIVE) 09/17/18 19:43 Urine Glucose (UA) 3+ mg/dL (Normal) H 09/17/18 19:43 Urine Ketones Negative mg/dL (NEGATIVE) 09/17/18 19:43 Urine Blood Negative (NEGATIVE) 09/17/18 19:43 Urine Nitrate Negative (NEGATIVE) 09/17/18 19:43 Urine Bilirubin Negative (NEGATIVE) 09/17/18 19:43 Urine Urobilinogen Normal mg/dL (0.2-1.0) 09/17/18 19:43 Ur Leukocyte Esterase Neg Mehdi/uL (Negative) 09/17/18 19:43 Urine WBC (Auto) 1 /hpf (0-5) 09/17/18 19:43 Urine RBC (Auto) < 1 /hpf (0-3) 09/17/18 19:43 Ur Squamous Epith Cells < 1 /hpf (0-5) 09/17/18 19:43 Urine Bacteria Occ (<OCC) H 09/17/18 19:43 - Hospital Course Hospital Course: Upon Admission Patient is a 53 yo female with CHF s/p AICD/pacemaker, T2DM, asthma/COPD, HTN, HLD, and ITP who presents with dizziness. She is also complaining of pain over her pacemaker site. She had a replacement pacemaker inserted last month on 08/15/18 at [facility]. Patient states that she left the hospital the same day as the surgery, and she had significant pain and swelling at the pacemaker site on her left chest. She states that for the next few days, she was dizzy upon walking, and this resolved on its own. Patient states that the pain continued despite using cold compresses and Aleve daily. She went to see her PMD Dr. Kirby as an outpatient who prescribed her Clindamycin. Patient finished the antibiotic course but the pain persisted. She then went to the ED at [facility] who prescribed her Bactrim, which she completed. Yesterday, the patient became significantly dizzy while walking, and she says that she nearly fell. The dizziness has persisted when walking and standing today. Patient describes the dizziness and lightheaded and weak. She denies room spinning, falls, or LOC. She says the bruising at the site on her chest has remained about the same. Of note, patient states she was diagnosed with ITP a few years ago. She says that she checks her glucose at home, and it is usually high. She also checks her BP, which she states is usually 120/80. She says last night, after becoming ligh theaded, her BP was 100/80. She denies SOB, palpitations, abdominal pain, dysuria, urinary frequency, N/V/D/C. Hospital Course 53 year old female admitted for pain over pacemaker site. Chest CT showed no acute problems. EP cardiology consult was placed and ICD was interrogated and found to have no problems. On labs patient had EMILY 2/2 low blood pressure 2/2 overmedication. Patient bp meds were held. Patient was treated for her chronic DM2. Patient noncompliant with diet from hospital so sugars remained slightly elevated. Nephro Consult was placed and patient EMILY resolved with fluid rehydration. Patient had clean renal ultrasound. Discharged with followup instructions. Discharge Plan 1. Patient is stable for discharge to home as per Dr. Kirby. 2. Patient will need to followup with pmd, Dr. Kirby, within 7 days of discharge from hospital. 3. Patient's blood pressure medications carvedilol and enalapril have been discontinued and are recommended to be dc'ed until followup. Patient's was normotensive with soft BPs. PCP may restart with recheck at office. Patient will continue all of her other medications for diabetes. 4. Patient should return to hospital if symptoms worsen or recur. 5. Patient understands the plan as above and agrees. Disclaimer: Above is synopsis of patient's current hospital admission. For full report refer to EMR. Discharge Exam - Head Exam Head Exam: ATRAUMATIC, NORMAL INSPECTION - Eye Exam Eye Exam: EOMI, Normal appearance. absent: Nystagmus, Scleral icterus - ENT Exam ENT Exam: Mucous Membranes Moist - Respiratory Exam Respiratory Exam: NORMAL BREATHING PATTERN - Cardiovascular Exam Cardiovascular Exam: REGULAR RHYTHM, +S1, +S2 - GI/Abdominal Exam GI & Abdominal Exam: Normal Bowel Sounds, Soft - Extremities Exam Extremities exam: normal inspection - Neurological Exam Neurological exam: Alert, Oriented x3 - Psychiatric Exam Psychiatric exam: Normal Affect, Normal Mood - Skin Skin Exam: Dry, Intact, Normal Color Additional comments: ecchymosis and tenderness at site of pacemaker placement Discharge Plan - Follow Up Plan Condition: GOOD Disposition: HOME/ ROUTINE Additional Instructions: 1. Patient is stable for discharge to home as per Dr. Kirby. 2. Patient will need to followup with pmd, Dr. Kirby, within 7 days of discharge from hospital. 3. Patient's blood pressure medications carvedilol and enalapril have been discontinued and are recommended to be dc'ed until followup. Patient's was normotensive with soft BPs. PCP may restart with recheck at office. Patient will continue all of her other medications for diabetes. 4. Patient should return to hospital if symptoms worsen or recur. 5. Patient understands the plan as above and agrees. Referrals: Thierno Kirby Jr., MD [Medical Doctor] -
== END 2018-09-19 12:53 | disposition home or self-care (01) ==
LOC: C.ER 13:34 → C.3T 16:54
PROVIDERS: ADMIT Internal Medicine; ATTEND Internal Medicine
DX: N17.9 Acute kidney failure, unspecified (principal); E11.9 Type 2 diabetes mellitus without complications; R07.9 Chest pain, unspecified; I11.0 Hypertensive heart disease with heart failure; I25.10 Atherosclerotic heart disease of native coronary artery without angina pectoris; E78.5 Hyperlipidemia, unspecified; I50.9 Heart failure, unspecified; J44.9 Chronic obstructive pulmonary disease, unspecified; D69.3 Immune thrombocytopenic purpura; Z45.02 Encounter for adjustment and management of automatic implantable cardiac defibrillator
CPT/HCPCS: 36415; 70450; 71045; 71250; 76770; 80053; 81001; 82948; 83735; 84100; 85025; 93005; 94640; 96361; 96374; 96375; 96376; 97116; 97162; 97166; 97530; 99285; G0378; G8978; G8979; G8987; G8988; J1170; J2270; J2405; J7030; J7040

== ENCOUNTER 2018-11-10 16:23 | Observation (INO) | payer MEDICARE, OTHER ==
[2018-11-10 16:23] VITALS: BMI 27.6
--- NOTE | 2018-11-10 16:54 | C.PDOC ---
History Of Present Illness 53 y/o female, with history of COPD, CHF, and DVT (on xarelto), comes in to ED with complaints of chest pain, abdominal pain, and subjective SOB for the last 3 days. pt reports diffuse abd pain worse epigastric. also states cp cannot characterize pain. He denies fever, cough, nausea, vomiting, diarrhea, urinary symptoms, or other complaints. <Albert Gagnon - Last Filed: 11/10/18 18:24> History Per: Patient History/Exam Limitations: no limitations Onset/Duration Of Symptoms: Days Current Symptoms Are (Timing): Still Present <Albert Gagnon - Last Filed: 11/10/18 18:24> <Annmarie Seay - Last Filed: 11/10/18 21:22> Time Seen by Provider: 11/10/18 16:41 Chief Complaint (Nursing): Chest Pain Past Medical History Reviewed: Historical Data, Nursing Documentation, Vital Signs Vital Signs: Last Vital Signs Temp 98.9 F 11/10/18 16:26 Pulse 85 11/10/18 16:26 Resp 18 11/10/18 16:26 BP 152/93 H 11/10/18 16:26 Pulse Ox 96 11/10/18 16:26 Primary Care Provider: Thierno Kirby Jr. - Medical History PMH: Bronchitis, CAD, CHF, COPD, HTN, Hyperlipidemia Denies: Chronic Kidney Disease Surgical History: Cholecystectomy, Pacemaker Family History: States: No Known Family Hx - Social History Hx Tobacco Use: No Hx Alcohol Use: No Hx Substance Use: No - Immunization History Hx Tetanus Toxoid Vaccination: No Hx Influenza Vaccination: Yes Hx Pneumococcal Vaccination: No <Albert Gagnon - Last Filed: 11/10/18 18:24> Vital Signs: Last Vital Signs Temp 98.9 F 11/10/18 16:26 Pulse 76 11/10/18 19:46 Resp 13 11/10/18 19:46 BP 148/83 11/10/18 19:46 Pulse Ox 95 11/10/18 19:46 <Annmarie Seay - Last Filed: 11/10/18 21:22> Review Of Systems Except As Marked, All Systems Reviewed And Found Negative. Constitutional: Negative for: Fever, Chills Cardiovascular: Positive for: Chest Pain. Negative for: Palpitations Respiratory: Positive for: Shortness of Breath (subjective). Negative for: Cough Gastrointestinal: Positive for: Abdominal Pain. Negative for: Nausea, Vomiting, Diarrhea Genitourinary: Negative for: Dysuria, Hematuria Musculoskeletal: Negative for: Back Pain <Albert Gagnon - Last Filed: 11/10/18 18:24> Physical Exam - Physical Exam Appears: Non-toxic, No Acute Distress Skin: Warm, Dry Head: Normacephalic Eye(s): bilateral: Normal Inspection Oral Mucosa: Moist Neck: Supple Chest: Symmetrical, No Tenderness Cardiovascular: Rhythm Regular, No Murmur Respiratory: Normal Breath Sounds, No Rales, No Rhonchi, No Wheezing Gastrointestinal/Abdominal: Soft, Tenderness (nonfocal abdominal tenderness, worse in epigastric), No Distention, No Guarding, No Rebound Back: No CVA Tenderness Extremity: Bilateral: Normal Color And Temperature Neurological/Psych: Oriented x3, Normal Speech, Normal Cognition <Albert Gagnon - Last Filed: 11/10/18 18:24> ED Course And Treatment - Laboratory Results Result Diagrams: 11/10/18 17:47 11/10/18 17:47 ECG: Interpreted By Me, Viewed By Me ECG Rhythm: Sinus Rhythm Interpretation Of ECG: No ST/T wave changes. Rate From EC O2 Sat by Pulse Oximetry: 96 (RA) Pulse Ox Interpretation: Normal <Albert Gagnon - Last Filed: 11/10/18 18:24> - Laboratory Results Result Diagrams: 11/10/18 17:47 11/10/18 17:47 Lab Results: PT 27.4 SECONDS (9.7-12.2) H 11/10/18 17:47 INR 2.5 11/10/18 17:47 APTT 50.2 SECONDS (21-34) H 11/10/18 17:47 Troponin I < 0.0120 ng/mL (0.00-0.120) 11/10/18 17:47 NT-Pro-B Natriuret Pep 21.4 pg/mL (0-900) 11/10/18 17:47 Total Bilirubin 0.7 mg/dL (0.2-1.3) 11/10/18 17:47 AST 24 U/L (14-36) 11/10/18 17:47 ALT 23 U/L (9-52) 11/10/18 17:47 Alkaline Phosphatase 60 U/L (38-126) 11/10/18 17:47 Total Protein 7.8 g/dL (6.3-8.3) 11/10/18 17:47 Albumin 4.6 g/dL (3.5-5.0) 11/10/18 17:47 Globulin 3.3 gm/dL (2.2-3.9) 11/10/18 17:47 Albumin/Globulin Ratio 1.4 (1.0-2.1) 11/10/18 17:47 Lipase 93 U/L (23-300) 11/10/18 17:47 Urine Color Yellow (YELLOW) 11/10/18 17:16 Urine Clarity Hazy (Clear) 11/10/18 17:16 Urine pH 6.0 (5.0-8.0) 11/10/18 17:16 Ur Specific [place] 1.012 (1.003-1.030) 11/10/18 17:16 Urine Protein 1+ mg/dL (NEGATIVE) H 11/10/18 17:16 Urine Glucose (UA) Normal mg/dL (Normal) 11/10/18 17:16 Urine Ketones Negative mg/dL (NEGATIVE) 11/10/18 17:16 Urine Blood 3+ (NEGATIVE) H 11/10/18 17:16 Urine Nitrate Negative (NEGATIVE) 11/10/18 17:16 Urine Bilirubin Negative (NEGATIVE) 11/10/18 17:16 Urine Urobilinogen 4.0 mg/dL (0.2-1.0) H 11/10/18 17:16 Ur Leukocyte Esterase 2+ Mehdi/uL (Negative) H 11/10/18 17:16 Urine WBC (Auto) 19 /hpf (0-5) H 11/10/18 17:16 Urine RBC (Auto) 505 /hpf (0-3) H 11/10/18 17:16 Ur Squamous Epith Cells < 1 /hpf (0-5) 11/10/18 17:16 Urine Bacteria Few (<OCC) H 11/10/18 17:16 Urine HCG, Qual Negative (NEGATIVE) 11/10/18 17:16 Urine HCG, Qual Negative (NEGATIVE) 11/10/18 17:16 - CT Scan/US Abd/Pel CT Other Rad Studies (CT/US): Read By Radiologist, Radiology Report Reviewed CT/US Interpretation: Findings: Chest: The visualized lung bases are clear. Abdomen: The spleen, pancreas, kidneys, gallbladder, and adrenal glands are unremarkable. Diffuse low attenuation of the hepatic parenchyma is noted. The hepatic and portal veins are patent. There is no evidence of biliary ductal dilatation. The aorta is within normal limits. There is no evidence of abdominal lymphadenopathy or ascites. There is mild fluid distention bowel wall thickening of the small bowel. Pelvis: Moderate amount of stool fills the right colon. The bowel is otherwise unremarkable, with no obstructive or inflammatory changes. The urinary bladder is within normal limits. The other pelvic structures appear grossly intact. There is no evidence of pelvic lymphadenopathy or ascites. Bones: There are no suspicious osseous abnormalities seen. Impression: 1. Moderate right-sided constipation. 2. Mild enteritis. No evidence of small bowel obstruction. 3. Fatty infiltration of the liver. . Electronically signed on November 10, 2018 9:09:38 PM EDT by: Azar Sierra M.D., M.B.A., Certified By ABR. Fellowship Trained MRI and CT Specialist <Annmarie Seay - Last Filed: 11/10/18 21:22> Medical Decision Making Medical Decision Making: cp- ro acs, - already anticoag on xarelto. not visibly dyspneic. not tachy or tachypneic pe less likelyu abd pain- ro colitis gastris pud Plan: --EKG --Labs --Chest XR --UA --Protonix pt reassesed. labs neg .cxr neg. speaking full sentences in nad. abd pelvis ct pending endorsed to night shift manager pending ct, reasses, final dispo. <Albert Gagnon - Last Filed: 11/10/18 18:24> Disposition - Disposition Disposition Time: 18:25 <Albert Gagnon - Last Filed: 11/10/18 18:24> - Disposition Disposition Time: 21:19 <Annmarie Seay - Last Filed: 11/10/18 21:22> - Disposition Disposition: HOSPITALIZED Condition: STABLE Forms: [employer] (Ivorian) - Clinical Impression Clinical Impression: Chest pain, Abdominal pain, Hematuria, Thrombocytopenia - Scribe Statement The provider has reviewed the documentation as recorded by the Guillermo Arguello Provider Attestation: All medical record entries made by the Scribe were at my direction and personally dictated by me. I have reviewed the chart and agree that the record accurately reflects my personal performance of the history, physical exam, medi cici decision making, and the department course for this patient. I have also personally directed, reviewed, and agree with the discharge instructions and disposition. <Albert Gagnon - Last Filed: 11/10/18 18:24>
[2018-11-10 17:29] LABS: SQUAMOUS EPITHIAL < 1 /hpf (0-5); URINE BACTERIA FEW (<OCC); URINE BILIRUBIN NEGATIVE (NEGATIVE); URINE BLOOD 3+ (NEGATIVE); URINE CLARITY Hazy (Clear); URINE COLOR Yellow (YELLOW); URINE GLUCOSE (UA) NORMAL (Normal); URINE LEUKOCYTE ESTERASE 2+ Leu/uL (Negative); URINE PROTEIN 1+ mg/dL (NEGATIVE)
[2018-11-10 17:32] LABS: HCG,QUALITATIVE URINE NEGATIVE (NEGATIVE)
[2018-11-10 17:53] LABS: BASO # 0.1 K/uL (0.0-0.2); BASO % 0.6 % (0.0-2.0); EOS # 0.2 K/uL (0.0-0.7); HEMOGLOBIN 13.4 g/dL (11.0-16.0); LYMPH # 3.7 K/uL (1.0-4.3); LYMPH % 31.1 % (20.0-40.0); MEAN CELL VOLUME 82.6 fL (81.0-99.0); MEAN CORPUSCULAR HEMOGLOBIN 28.1 pg (27.0-31.0); MONO # 0.8 K/uL (0.0-0.8); MONO % 6.9 % (0.0-10.0); NEUT % 59.4 % (50.0-75.0); RBC 4.76 Mil/uL (3.80-5.20); RED CELL DISTRIBUTION WIDTH 15.3 % (11.5-14.5); WHITE BLOOD COUNT 11.8 K/uL (4.8-10.8)
[2018-11-10] MEDS ORDERED: Iohexol 240 (50 ml) PO STA (17:58)
[2018-11-10 17:59] LABS: INR 2.5; PARTIAL THROMBOPLASTIN TIME 50.2 SECONDS (21-34); PROTHROMBIN TIME 27.4 SECONDS (9.7-12.2)
[2018-11-10 18:02] LABS: ALB/GLOB RATIO 1.4 (1.0-2.1); ALBUMIN 4.6 g/dL (3.5-5.0); ALT/SGPT 23 U/L (9-52); AST/SGOT 24 U/L (14-36); BLOOD UREA NITROGEN 12 mg/dL (7-17); CALCIUM 10.1 mg/dl (8.6-10.4); GFR NON-AFRICAN AMERICAN 58; LIPASE 93 U/L (23-300)
[2018-11-10 18:14] LABS: B-TYPE NATRIURETIC PEPTIDE 21.4 pg/mL (0-900)
[2018-11-10] MEDS ORDERED: Iohexol 240 (50 ml) ONE (18:14)
--- NOTE | 2018-11-10 19:17 | RAD ---
Date of service: 11/10/2018 PROCEDURE: CHEST RADIOGRAPH, 1 VIEW HISTORY: chest pain COMPARISON: 09/16/2018 FINDINGS: LUNGS: Clear. PLEURA: No pneumothorax or pleural fluid seen. CARDIOVASCULAR: No aortic atherosclerotic calcification present. Left-sided AICD is again seen in place OSSEOUS STRUCTURES: No significant abnormalities. VISUALIZED UPPER ABDOMEN: Normal. OTHER FINDINGS: None. IMPRESSION: No significant interval changes.
[2018-11-10] MEDS ORDERED: Morphine 4 MG/ML VIAL IV ONE (20:27)
[2018-11-10] MEDS ORDERED: Morphine 4 MG/ML VIAL ONE (20:32)
[2018-11-10] MEDS ORDERED: Iodixanol 320 MG/ML 100 ML BOTTLE IV ONE (20:44)
--- NOTE | 2018-11-10 21:25 | CP.PCM.HP ---
History of Present Illness - History of Present Illness History of Present Illness: 53 y/o female, with history of COPD, CHF, and DVT (on xarelto BID), comes in to ED with complaints of worsening abdominal pain and constipation. Pt says shes also been constipated for 4 days as well. Also notes about 4 days of dark red blood in her urine. Pt states the abdominal pain is getting worse and causing her discomfort. describes it as diffuse but worse epigastric and RLQ. Pt has not tried taking anything for relief yet, reports a decrease in her appetite over the last 4 days as well. Pt also reports chronic SOB, uses her ventolin pump for it. Pt recently started xarelto 2 weeks ago for an Upper Ext DVT. Pos+ CP SOB Abd Pain, constipation, blood in urine Neg- fever, cough, nausea, vomiting, diarrhea, weight loss, PMH: CHF s/p AICD/pacemaker, T2DM, asthma/COPD, HTN, HLD, ITP PSH: C-sections, cholecystectomy, pacemaker 2009, replacement pacemaker 08/2018 Meds: metformin 500 mg PO BID, Januvia 100 mg PO daily, Glipizide 10 mg PO daily, Humalog 75/25 20 units BID, Crestor 40 mg PO QHS, Coreg 25 mg PO BID, Enalapril 20 mg PO daily, Ventolin PRN All: NKDA FH: father- diabetes, CAD, HTN; mother- HTN; sisters- diabetes SH: unemplyed- used to work at [employer] [place], lives with son, daughter and grandson; smokes 1/2 ppd x30 years, denies alcohol or illicit drug use PMD: Mirta Cardio: Garett Present on Admission - Present on Admission Any Indicators Present on Admission: Yes History of DVT/PE: Yes Review of Systems - Review of Systems All systems: reviewed and no additional remarkable complaints except (as per HPI) Past Patient History - Infectious Disease Hx of Infectious Diseases: None - Tetanus Immunizations Tetanus Immunization: Unknown - Past Medical History & Family History Past Medical History?: Yes - Past Social History Smoking Status: Current Some Days Smoker - CARDIAC Hx Congestive Heart Failure: Yes Hx Hypertension: Yes Hx Pacemaker: Yes - PULMONARY Hx Bronchitis: Yes Hx Chronic Obstructive Pulmonary Disease (COPD): Yes - NEUROLOGICAL Hx Neurological Disorder: No - HEENT Hx HEENT Problems: No - RENAL Hx Chronic Kidney Disease: No - ENDOCRINE/METABOLIC Hx Diabetes Mellitus Type 2: Yes - HEMATOLOGICAL/ONCOLOGICAL Hx Blood Disorders: No - INTEGUMENTARY Hx Dermatological Problems: No - MUSCULOSKELETAL/RHEUMATOLOGICAL Hx Musculoskeletal Disorders: No Hx Falls: No - GASTROINTESTINAL Hx Gastrointestinal Disorders: No - GENITOURINARY/GYNECOLOGICAL Hx Genitourinary Disorders: No - PSYCHIATRIC Hx Substance Use: No - SURGICAL HISTORY Hx Cholecystectomy: Yes - ANESTHESIA Hx Anesthesia: Yes Hx Anesthesia Reactions: No Hx Malignant Hyperthermia: No Meds Allergies/Adverse Reactions: Allergies Allergy/AdvReac Type Severity Reaction Status Date / Time carrot Allergy Verified 11/10/18 16:30 Physical Exam - Additional Findings Additional findings: - Constitutional Appears: Non-toxic, No Acute Distress - Head Exam Head Exam: ATRAUMATIC, NORMAL INSPECTION - Eye Exam Eye Exam: EOMI, Normal appearance, PERRL - ENT Exam ENT Exam: Mucous Membranes Moist - Neck Exam Neck exam: Positive for: Full Rom, Tenderness (L neck). Negative for: Lymphadenopathy - Respiratory Exam Respiratory Exam: Clear to Auscultation Bilateral, NORMAL BREATHING PATTERN. absent: Wheezes, Respiratory Distress - Cardiovascular Exam Cardiovascular Exam: RRR, +S1, +S2 Additional comments: tenderness to palpation of L chest wall, significant ecchymosis, AICD/pacemaker palpable - GI/Abdominal Exam GI & Abdominal Exam: Soft. tender to light palp RUQ and RLQ. absent: Distended, firm, rebound, mcburneys murphys - Extremities Exam Extremities exam: Positive for: normal inspection. Negative for: pedal edema, tenderness - Back Exam Back exam: NORMAL INSPECTION. absent: tenderness - Neurological Exam Neurological exam: Alert, CN II-XII Intact, Normal Gait, Oriented x3 - Psychiatric Exam Psychiatric exam: Normal Affect, Normal Mood - Skin Skin Exam: Dry, Normal Color, Warm Results - Vital Signs Recent Vital Signs: Last Vital Signs Temp 98.9 F 11/10/18 16:26 Pulse 78 11/10/18 21:18 Resp 13 11/10/18 21:18 BP 124/78 11/10/18 21:18 Pulse Ox 94 L 11/10/18 21:18 - Labs Result Diagrams: 11/10/18 17:47 11/10/18 17:47 Labs: Laboratory Results - last 24 hr 11/10/18 11/10/18 11/10/18 17:16 17:47 17:47 WBC 11.8 H RBC 4.76 Hgb 13.4 Hct 39.3 MCV 82.6 MCH 28.1 MCHC 34.0 RDW 15.3 H Plt Count 78 L D MPV 11.0 Neut % (Auto) 59.4 Lymph % (Auto) 31.1 [place] % (Auto) 6.9 Eos % (Auto) 2.0 Baso % (Auto) 0.6 Neut # (Auto) 7.0 Lymph # (Auto) 3.7 [place] # (Auto) 0.8 Eos # (Auto) 0.2 Baso # (Auto) 0.1 PT 27.4 H INR 2.5 APTT 50.2 H Sodium Potassium Chloride Carbon Dioxide Anion Gap BUN Creatinine Est GFR ( Amer) Est GFR (Non-Af Amer) Random Glucose Calcium Total Bilirubin AST ALT Alkaline Phosphatase Troponin I NT-Pro-B Natriuret Pep Total Protein Albumin Globulin Albumin/Globulin Ratio Lipase Urine Color Yellow Urine Clarity Hazy Urine pH 6.0 Ur Specific [place] 1.012 Urine Protein 1+ H Urine Glucose (UA) Normal Urine Ketones Negative Urine Blood 3+ H Urine Nitrate Negative Urine Bilirubin Negative Urine Urobilinogen 4.0 H Ur Leukocyte Esterase 2+ H Urine WBC (Auto) 19 H Urine RBC (Auto) 505 H Ur Squamous Epith Cells < 1 Urine Bacteria Few H Urine HCG, Qual Negative 11/10/18 17:47 WBC RBC Hgb Hct MCV MCH MCHC RDW Plt Count MPV Neut % (Auto) Lymph % (Auto) [place] % (Auto) Eos % (Auto) Baso % (Auto) Neut # (Auto) Lymph # (Auto) [place] # (Auto) Eos # (Auto) Baso # (Auto) PT INR APTT Sodium 138 Potassium 3.3 L Chloride 97 L Carbon Dioxide 30 Anion Gap 14 BUN 12 Creatinine 1.0 Est GFR ( Amer) > 60 Est GFR (Non-Af Amer) 58 Random Glucose 228 H D Calcium 10.1 Total Bilirubin 0.7 AST 24 ALT 23 Alkaline Phosphatase 60 Troponin I < 0.0120 NT-Pro-B Natriuret Pep 21.4 Total Protein 7.8 Albumin 4.6 Globulin 3.3 Albumin/Globulin Ratio 1.4 Lipase 93 Urine Color Urine Clarity Urine pH Ur Specific [place] Urine Protein Urine Glucose (UA) Urine Ketones Urine Blood Urine Nitrate Urine Bilirubin Urine Urobilinogen Ur Leukocyte Esterase Urine WBC (Auto) Urine RBC (Auto) Ur Squamous Epith Cells Urine Bacteria Urine HCG, Qual Assessment & Plan - Assessment and Plan (Free Text) Plan: Abdominal Pain Constipation CT w/ IV & PO cont: 1. Moderate right-sided constipation. 2. Mild enteritis. No evidence of small bowel obstruction. Zofran 4 q4 ivp Bentyl PTX NS@75 Mg Citrate x1 Epigastric Pain Trop neg x1 f/u ROMIs x2 PTX 40 daily UTI Rocephin 1g daily IVPB NS @ 75 f/u UC Hx of Upper Extremity DVT Xarelto tmrw if hematuria resolves Systolic CHF (HFrEF) s/p AICD/pacemaker (original 2009, replacement 08/2018) Enalapril 20 daily Coreg 25 BID Type 2 diabetes mellitus Accuchecks ACHS Hypoglycemia protocol ISS medium Asthma/COPD CXR: mild emphysematous changes Duoneb Q6H PRN Hypertension Enalapril 20 daily Coreg 25 BID Hyperlipidemia Crestor 40 mg PO QHS Hx Idiopathic thrombocytopenia purpura Platelets 78 (baseline 50-80) Monitor CBC Ppx: VTE: SCDs GI: PTX Diet: Liquids DISPO: restart Xarelto tmrw if hematuria resolves, f/u maria elena Case discussed with attending, Dr. Kirby.
[2018-11-10] MEDS: (Novolin R) Insulin Human Regular 100 units/ml vial SC SCH (22:15)
[2018-11-10 22:49] VITALS: RESP 20
[2018-11-10] MEDS ORDERED: Albuterol-Ipratrop 3 mg / 0.5 (3 ml) UD INH PRN (22:49)
[2018-11-10] MEDS ORDERED: Magnesium Citrate Oral SOL (300 ml) PO ONE (23:00)
[2018-11-10] MEDS: Sodium Chloride 0.9% 1,000 ML IV SCH (23:30)
[2018-11-11 01:41] VITALS: O2SAT 95
[2018-11-11 05:31] LABS: CK-MB 0.55 ng/mL (0.0-3.38)
[2018-11-11 05:50] LABS: ALB/GLOB RATIO 1.5 (1.0-2.1); ALBUMIN 4.3 g/dL (3.5-5.0); ALT/SGPT 29 U/L (9-52); AST/SGOT 38 U/L (14-36); BLOOD UREA NITROGEN 12 mg/dL (7-17); CALCIUM 9.7 mg/dl (8.6-10.4); GFR NON-AFRICAN AMERICAN 58
[2018-11-11 08:05] VITALS: PULSE 72; TEMP 98
--- NOTE | 2018-11-11 08:09 | CT ---
Date of service: 11/10/2018 PROCEDURE: CT Abdomen and Pelvis with contrast HISTORY: Diffuse abdominal pain COMPARISON: 12/13/2016 TECHNIQUE: Multiple contiguous axial images were performed through the abdomen and pelvis with the use of intravenous contrast. Subsequently, sagittal and coronal reformatted images were obtained. Radiation dose: Total exam DLP = 961.26 mGy-cm. This CT exam was performed using one or more of the following dose reduction techniques: Automated exposure control, adjustment of the mA and/or kV according to patient size, and/or use of iterative reconstruction technique. FINDINGS: LOWER THORAX: Scattered atelectasis at the lung bases. LIVER: Fatty infiltration of the liver. GALLBLADDER AND BILE DUCTS: Prior cholecystectomy. PANCREAS: Unremarkable. No gross lesion or ductal dilatation. SPLEEN: Grossly preserved. Splenule. ADRENALS: Nodular thickening of the adrenal glands. Suggestion of an indeterminate 1 centimeter nodule in the left adrenal gland demonstrating a Hounsfield unit attenuation of 37. This may be better evaluated with multiphasic CT or MR if clinically indicated. KIDNEYS AND URETERS: Unremarkable. No hydronephrosis. No solid mass. VASCULATURE: Unremarkable. No aortic aneurysm. Aortic atherosclerotic calcification or mural plaque present. BOWEL: Unremarkable. No obstruction. No gross mural thickening. Fecal retention in the colon. Mildly distended loops of small bowel in the upper and mid abdomen. APPENDIX: Normal appendix. PERITONEUM: Unremarkable. No free fluid. No free air. LYMPH NODES: Unremarkable. No enlarged lymph nodes. BLADDER: Distended urinary bladder. REPRODUCTIVE: Unremarkable. 1.8 centimeter right adnexal cyst. BONES: No acute fracture. Degenerative changes in the spine. OTHER FINDINGS: None. IMPRESSION: Moderate fecal retention in the colon. Mild enteritis. Fatty infiltration of the liver. Additional findings as above. A preliminary report was generated at 9:09 p.m. on 11/10/[address] Azar Sierra from [employer]
[2018-11-11] MEDS: (Novolin R) Insulin Human Regular 100 units/ml vial SC SCH ×2 (08:40→11:29)
--- NOTE | 2018-11-11 09:31 | CP.PCM.PN ---
Subjective - Date & Time of Evaluation Date of Evaluation: 11/11/18 Time of Evaluation: 09:31 Objective - Vital Signs/Intake and Output Vital Signs (last 24 hours): Temp Pulse Resp BP Pulse Ox 98.0 F 72 20 105/69 95 11/11/18 07:00 11/11/18 07:00 11/11/18 07:00 11/11/18 07:00 11/11/18 08:02 - Medications Medications: Current Medications Albuterol/Ipratropium (Duoneb 3 Mg/0.5 Mg (3 Ml) Ud) 3 ml INH RQ6 PRN PRN Reason: Shortness of Breath Carvedilol (Coreg) 25 mg PO BID [facility] Dicyclomine HCl (Bentyl) 10 mg PO QID [facility] Enalapril Maleate (Vasotec) 20 mg PO DAILY [facility] Glipizide (Glucotrol) 10 mg PO BID [facility] Last Admin: 11/10/18 22:26 Dose: 10 mg Ceftriaxone Sodium 1 gm/ (Sodium Chloride) 100 mls @ 100 mls/hr IVPB DAILY [facility]; Protocol Sodium Chloride (Sodium Chloride 0.9%) 1,000 mls @ 75 mls/hr IV .[id number] [facility] Last Admin: 11/10/18 23:30 Dose: 75 mls/hr Insulin Human Regular (Novolin R) 0 unit SC ACHS [facility]; Protocol Last Admin: 11/11/18 08:40 Dose: 3 units Ondansetron HCl (Zofran Inj) 4 mg IVP Q4 PRN PRN Reason: Nausea/Vomiting Pantoprazole Sodium (Protonix Inj) 40 mg IVP DAILY [facility] Rosuvastatin Calcium (Crestor) 40 mg PO HS [facility] Last Admin: 11/10/18 22:26 Dose: 40 mg Sitagliptin Phosphate (Januvia) 100 mg PO DAILY [facility] - Labs Labs: 11/10/18 17:47 11/11/18 04:48 PT 27.4 SECONDS (9.7-12.2) H 11/10/18 17:47 INR 2.5 11/10/18 17:47 APTT 50.2 SECONDS (21-34) H 11/10/18 17:47
[2018-11-11] MEDS ORDERED: INSULIN LISPRO 20 UNIT SQ SCH (10:00)
[2018-11-11 10:08] VITALS: BP 148/67
--- NOTE | 2018-11-11 11:04 | CP.PCM.DIS ---
Provider - Provider Date of Admission: 11/10/18 21:23 Attending physician: Thierno Kirby Jr, MD Time Spent in preparation of Discharge (in minutes): 35 Diagnosis - Discharge Diagnosis (1) Constipation Status: Acute (2) Chest pain Status: Resolved Hospital Course - Lab Results Lab Results: Most Recent Lab Values WBC 11.8 K/uL (4.8-10.8) H 11/10/18 17:47 RBC 4.76 Mil/uL (3.80-5.20) 11/10/18 17:47 Hgb 13.4 g/dL (11.0-16.0) 11/10/18 17:47 Hct 39.3 % (34.0-47.0) 11/10/18 17:47 MCV 82.6 fL (81.0-99.0) 11/10/18 17:47 MCH 28.1 pg (27.0-31.0) 11/10/18 17:47 MCHC 34.0 g/dL (33.0-37.0) 11/10/18 17:47 RDW 15.3 % (11.5-14.5) H 11/10/18 17:47 Plt Count 78 K/uL (130-400) L D 11/10/18 17:47 MPV 11.0 fL (7.2-11.7) 11/10/18 17:47 Neut % (Auto) 59.4 % (50.0-75.0) 11/10/18 17:47 Lymph % (Auto) 31.1 % (20.0-40.0) 11/10/18 17:47 [place] % (Auto) 6.9 % (0.0-10.0) 11/10/18 17:47 Eos % (Auto) 2.0 % (0.0-4.0) 11/10/18 17:47 Baso % (Auto) 0.6 % (0.0-2.0) 11/10/18 17:47 Neut # (Auto) 7.0 K/uL (1.8-7.0) 11/10/18 17:47 Lymph # (Auto) 3.7 K/uL (1.0-4.3) 11/10/18 17:47 [place] # (Auto) 0.8 K/uL (0.0-0.8) 11/10/18 17:47 Eos # (Auto) 0.2 K/uL (0.0-0.7) 11/10/18 17:47 Baso # (Auto) 0.1 K/uL (0.0-0.2) 11/10/18 17:47 PT 27.4 SECONDS (9.7-12.2) H 11/10/18 17:47 INR 2.5 11/10/18 17:47 APTT 50.2 SECONDS (21-34) H 11/10/18 17:47 Sodium 137 mmol/L (132-148) 11/11/18 04:48 Potassium 3.4 mmol/L (3.6-5.2) L 11/11/18 04:48 Chloride 98 mmol/L (98-107) 11/11/18 04:48 Carbon Dioxide 32 mmol/L (22-30) H 11/11/18 04:48 Anion Gap 10 (10-20) 11/11/18 04:48 BUN 12 mg/dL (7-17) 11/11/18 04:48 Creatinine 1.0 mg/dL (0.7-1.2) 11/11/18 04:48 Est GFR ( Amer) > 60 11/11/18 04:48 Est GFR (Non-Af Amer) 58 11/11/18 04:48 POC Glucose (mg/dL) 206 mg/dL (65-110) H 11/11/18 06:40 Random Glucose 217 mg/dL (65-105) H 11/11/18 04:48 Calcium 9.7 mg/dl (8.6-10.4) 11/11/18 04:48 Phosphorus 4.0 mg/dL (2.5-4.5) 11/11/18 04:48 Magnesium 1.9 mg/dL (1.6-2.3) 11/11/18 04:48 Total Bilirubin 0.6 mg/dL (0.2-1.3) 11/11/18 04:48 AST 38 U/L (14-36) H D 11/11/18 04:48 ALT 29 U/L (9-52) 11/11/18 04:48 Alkaline Phosphatase 63 U/L (38-126) 11/11/18 04:48 Total Creatine Kinase 196 U/L (30-135) H 11/11/18 04:48 CK-MB (Mass) 0.55 ng/mL (0.0-3.38) 11/11/18 04:48 Troponin I < 0.0120 ng/mL (0.00-0.120) 11/11/18 04:48 NT-Pro-B Natriuret Pep 21.4 pg/mL (0-900) 11/10/18 17:47 Total Protein 7.2 g/dL (6.3-8.3) 11/11/18 04:48 Albumin 4.3 g/dL (3.5-5.0) 11/11/18 04:48 Globulin 2.9 gm/dL (2.2-3.9) 11/11/18 04:48 Albumin/Globulin Ratio 1.5 (1.0-2.1) 11/11/18 04:48 Lipase 93 U/L (23-300) 11/10/18 17:47 Urine Color Yellow (YELLOW) 11/10/18 17:16 Urine Clarity Hazy (Clear) 11/10/18 17:16 Urine pH 6.0 (5.0-8.0) 11/10/18 17:16 Ur Specific Muse 1.012 (1.003-1.030) 11/10/18 17:16 Urine Protein 1+ mg/dL (NEGATIVE) H 11/10/18 17:16 Urine Glucose (UA) Normal mg/dL (Normal) 11/10/18 17:16 Urine Ketones Negative mg/dL (NEGATIVE) 11/10/18 17:16 Urine Blood 3+ (NEGATIVE) H 11/10/18 17:16 Urine Nitrate Negative (NEGATIVE) 11/10/18 17:16 Urine Bilirubin Negative (NEGATIVE) 11/10/18 17:16 Urine Urobilinogen 4.0 mg/dL (0.2-1.0) H 11/10/18 17:16 Ur Leukocyte Esterase 2+ Mehdi/uL (Negative) H 11/10/18 17:16 Urine WBC (Auto) 19 /hpf (0-5) H 11/10/18 17:16 Urine RBC (Auto) 505 /hpf (0-3) H 11/10/18 17:16 Ur Squamous Epith Cells < 1 /hpf (0-5) 11/10/18 17:16 Urine Bacteria Few (<OCC) H 11/10/18 17:16 Urine HCG, Qual Negative (NEGATIVE) 11/10/18 17:16 - Hospital Course Hospital Course: On admission: 53 y/o female, with history of COPD, CHF, and DVT (on xarelto BID), comes in to ED with complaints of worsening abdominal pain and constipation. Pt says shes also been constipated for 4 days as well. Also notes about 4 days of dark red blood in her urine. Pt states the abdominal pain is getting worse and causing her discomfort. describes it as diffuse but worse epigastric and RLQ. Pt has not tried taking anything for relief yet, reports a decrease in her appetite over the last 4 days as well. Pt also reports chronic SOB, uses her ventolin pump for it. Pt recently started xarelto 2 weeks ago for an Upper Ext DVT. On admission: Abdominal Pain Constipation CT w/ IV & PO cont: 1. Moderate right-sided constipation. 2. Mild enteritis. No evidence of small bowel obstruction. Zofran 4 q4 ivp Bentyl PTX NS@75 Mg Citrate x1 Epigastric Pain Trop neg x3 PTX 40 daily UTI Rocephin 1g daily IVPB NS @ 75 f/u UC Hx of Upper Extremity DVT hold Xarelto. hematuria improved but not resolved. Systolic CHF (HFrEF) s/p AICD/pacemaker (original 2009, replacement 08/2018) Enalapril 20 daily Coreg 25 BID Type 2 diabetes mellitus Accuchecks ACHS Hypoglycemia protocol ISS medium Asthma/COPD CXR: mild emphysematous changes Duoneb Q6H PRN Hypertension Enalapril 20 daily Coreg 25 BID Hyperlipidemia Crestor 40 mg PO QHS Hx Idiopathic thrombocytopenia purpura Platelets 78 (baseline 50-80) Monitor CBC Ppx: VTE: SCDs GI: PTX Diet: Liquids DISPO: restart Xarelto tmrw if hematuria resolves, f/u maria elena Case discussed with attending, Dr. Kirby. Discharge instructions: Patient is stable for discharge as per Dr. Kirby. You will be discharged with the following prescriptions: Ciprofloxacin 500mg twice a day for 3 days You should stop taking Xarelto due to blood in your urine until you see Dr. Kirby in the office. Continue taking your other home medication as usual. You must see Dr. Kirby in the office before November 14. Call the office to make an appointment. Return to emergency room for new or worsening symptoms. Discharge Exam - Head Exam Head Exam: ATRAUMATIC, NORMOCEPHALIC - Eye Exam Eye Exam: EOMI, Normal appearance, PERRL - ENT Exam ENT Exam: Mucous Membranes Moist - Neck Exam Neck exam: Full Rom, Normal Inspection - Respiratory Exam Respiratory Exam: Clear to PA & Lateral, NORMAL BREATHING PATTERN. absent: Rales, Rhonchi, Wheezes, Respiratory Distress - Cardiovascular Exam Cardiovascular Exam: REGULAR RHYTHM, +S1, +S2. absent: Systolic Murmur - GI/Abdominal Exam GI & Abdominal Exam: Normal Bowel Sounds, Soft. absent: Distended, Firm, Guarding, Rebound, Rigid, Tenderness - Extremities Exam Extremities exam: full ROM, normal capillary refill, pedal pulses present - Neurological Exam Neurological exam: Alert, CN II-XII Intact, Oriented x3 - Psychiatric Exam Psychiatric exam: Normal Affect, Normal Mood - Skin Skin Exam: Dry, Intact, Normal Color, Warm Discharge Plan - Discharge Medications Prescriptions: Ciprofloxacin [Cipro] 500 mg PO BID #6 tab - Follow Up Plan Condition: STABLE Disposition: HOME/ ROUTINE Instructions: Ciprofloxacin (Systemic), Heart Failure, Adult (DC), Acute Abdomen (Belly Pain), Adult (DC), Chest Pain (DC), Full Liquid Diet Additional Instructions: Patient is stable for discharge as per Dr. Kirby. You will be discharged with the following prescriptions: Ciprofloxacin 500mg twice a day for 3 days You should stop taking Xarelto due to blood in your urine until you see Dr. Kirby in the office. Continue taking your other home medication as usual. You must see Dr. Kirby in the office before November 14. Call the office to make an appointment. Return to emergency room for new or worsening symptoms. Referrals: Thierno Kirby Jr., MD [Medical Doctor] -
[2018-11-11] MEDS: Sodium Chloride 0.9% 1,000 ML IV SCH (11:50)
--- NOTE | 2018-11-11 20:41 | CARD ---
APPROVED REPORT Date of service: 11/10/2018 EKG Measurement Heart [id number] <Conclusion> Normal sinus rhythm Normal ECG
== END 2018-11-11 14:52 | disposition home or self-care (01) ==
LOC: C.ER 16:23 → C.9E 21:23 → C.5S 22:07
PROVIDERS: ADMIT Internal Medicine; ATTEND Internal Medicine
DX: K59.00 Constipation, unspecified (principal); N39.0 Urinary tract infection, site not specified; D69.3 Immune thrombocytopenic purpura; E78.5 Hyperlipidemia, unspecified; I11.0 Hypertensive heart disease with heart failure; E11.9 Type 2 diabetes mellitus without complications; R31.9 Hematuria, unspecified; I25.10 Atherosclerotic heart disease of native coronary artery without angina pectoris; I50.20 Unspecified systolic (congestive) heart failure; J44.9 Chronic obstructive pulmonary disease, unspecified; K52.9 Noninfective gastroenteritis and colitis, unspecified; Z86.718 Personal history of other venous thrombosis and embolism; Z87.891 Personal history of nicotine dependence; Z95.810 Presence of automatic (implantable) cardiac defibrillator; Z82.49 Family history of ischemic heart disease and other diseases of the circulatory system; Z83.3 Family history of diabetes mellitus
CPT/HCPCS: 36415; 71045; 74177; 80053; 81001; 82948; 83690; 83735; 83880; 84100; 84484; 84703; 85025; 85610; 85730; 93005; 96365; 96366; 96375; 96376; 99285; C9113; G0378; J0696; J2270; J7030; Q9966; Q9967